=== PATIENT | female | born 1975 | race African-American/Black ===

== ENCOUNTER 2016-10-06 19:41 | Emergency (ER) | payer SELFPAY ==
[2016-10-06 19:46] VITALS: BP 124/71
--- NOTE | 2016-10-06 20:06 | ER Document Report ---
ED Medical Screen (RME) - General Stated Complaint: PAIN IN LEGS Mode of Arrival: Ambulatory Information source: Patient Notes: She presents to the emergency department with complaints of bilateral leg pain left worse than right. Patient reports she was walking a lot at [place] this past weekend. She reports the pain radiates from her heel up her leg to her hip.. Patient reports she's had this pain before. She's been told she has plantar fasciitis. Denies trauma. Patient reports her leg has always hurt. Pt reports she went to ortho two weeks ago for hip pain. Pt did not take anything for pain. I have greeted and performed a rapid initial assessment of this patient. A comprehensive ED assessment and evaluation of the patient, analysis of test results and completion of the medical decision making process will be conducted by additional ED providers. TRAVEL OUTSIDE OF THE [place] IN LAST 30 DAYS: No - Related Data Allergies/Adverse Reactions: penicillin V potassium [From Pen-Vee K] Allergy (Intermediate, Verified 13:38) Hives Sulfa (Sulfonamide Antibiotics) Allergy (Intermediate, Verified 09/04/15 13:38) Hives ibuprofen [From Motrin] Allergy (Mild, Verified 09/04/15 13:38) Hives metronidazole [From Flagyl] Allergy (Mild, Verified 09/04/15 13:38) rash Metronidazole HCl [From Flagyl] Allergy (Mild, Verified 09/04/15 13:38) rash Penicillins Allergy (Verified 09/04/15 13:38) Past Medical History - Social History Family history: Reviewed & Not Pertinent Endocrine Medical History: Renal/ Medical History: Reports: Hx Ovarian Cysts GI Medical History: Reports: Hx Gastroesophageal Reflux Disease Musculoskeltal Medical History: Reports Hx Arthritis, Reports Hx Musculoskeletal Deformity - scoliosis Psychiatric Medical History: Reports: Hx Anxiety - Immunizations Immunizations up to date: Yes Hx Diphtheria, Pertussis, Tetanus Vaccination: Yes - 2010 Physical Exam - Vital signs Vitals: Temp Pulse Resp BP Pulse Ox 98.8 F 86 16 124/71 100 10/06/16 19:46 10/06/16 19:46 10/06/16 19:46 10/06/16 19:46 10/06/16 19:46 Course - Vital Signs Vital signs: Temp Pulse Resp BP Pulse Ox 98.8 F 86 16 124/71 100 10/06/16 19:46 10/06/16 19:46 10/06/16 19:46 10/06/16 19:46 10/06/16 19:46
== END 2016-10-06 22:58 | disposition left against medical advice (07) ==
LOC: ER 19:41
DX: Z53.9 Procedure and treatment not carried out, unspecified reason (principal); M79.604 Pain in right leg; M79.605 Pain in left leg
CPT/HCPCS: 99281

== ENCOUNTER 2017-02-08 11:32 | Emergency (ER) | payer SELFPAY ==
[2017-02-08] MEDS ORDERED: ASPIRIN 325 MG TABLET PO ONE (11:54)
--- NOTE | 2017-02-08 11:57 | ER Document Report ---
ED Medical Screen (RME) - General Chief Complaint: Chest Pain Stated Complaint: CHEST PAIN Time Seen by Provider: 02/08/17 11:54 Mode of Arrival: Ambulatory Information source: Patient TRAVEL OUTSIDE OF THE [place] IN LAST 30 DAYS: No - HPI Patient complains to provider of: CP Onset: Other - Pt with intermittent SSCP for the past week -- thought it was heartburn bust hasn't gone away despite otc meds. - Related Data Allergies/Adverse Reactions: penicillin V potassium [From Pen-Vee K] Allergy (Intermediate, Verified 11:46) Hives Sulfa (Sulfonamide Antibiotics) Allergy (Intermediate, Verified 02/08/17 11:46) Hives ibuprofen [From Motrin] Allergy (Mild, Verified 02/08/17 11:46) Hives metronidazole [From Flagyl] Allergy (Mild, Verified 02/08/17 11:46) rash Metronidazole HCl [From Flagyl] Allergy (Mild, Verified 02/08/17 11:46) rash Penicillins Allergy (Verified 02/08/17 11:46) Past Medical History - Social History Family history: Reviewed & Not Pertinent Endocrine Medical History: Renal/ Medical History: Reports: Hx Ovarian Cysts. Denies: Hx Peritoneal Dialysis GI Medical History: Reports: Hx Gastroesophageal Reflux Disease Musculoskeltal Medical History: Reports Hx Arthritis, Reports Hx Musculoskeletal Deformity - scoliosis Psychiatric Medical History: Reports: Hx Anxiety - Immunizations Immunizations up to date: Yes Hx Diphtheria, Pertussis, Tetanus Vaccination: Yes - 2010 Physical Exam - Vital signs Vitals: Temp Pulse Resp BP Pulse Ox 98.5 F 101 H 18 130/77 H 97 02/08/17 11:45 02/08/17 11:45 02/08/17 11:45 02/08/17 11:45 02/08/17 11:45 Course - Vital Signs Vital signs: Temp Pulse Resp BP Pulse Ox 98.5 F 101 H 18 130/77 H 97 02/08/17 11:45 02/08/17 11:45 02/08/17 11:45 02/08/17 11:45 02/08/17 11:45
--- NOTE | 2017-02-08 12:28 | ER Document Report ---
ED General - General Chief Complaint: Chest Pain Stated Complaint: CHEST PAIN Time Seen by Provider: 02/08/17 11:54 Mode of Arrival: Ambulatory Information source: Patient Notes: This is a 41-year-old female with a history of GERD who presents to the emergency room with increasing chest discomfort on and off for the past 2 days. Patient states she has had also an increased cough at night. Patient states her symptoms started after taking apple cider vinegar. She did take Pepcid once without any relief. Past medical history: GERD, ovarian cyst Medicines: Pepcid, she has been taking apple cider vinegar, and she does take multivitamins History: She has 5 brothers and 3 sisters all in good health, her parents are good health. No history of VTE TRAVEL OUTSIDE OF THE [place] IN LAST 30 DAYS: No - HPI Onset: Last week Onset/Duration: Gradual Quality of pain: Dull Severity: Mild Associated symptoms: Chest pain. denies: Fever, Shortness of breath Exacerbated by: Movement Relieved by: Denies Similar symptoms previously: Yes Recently seen / treated by doctor: No - Related Data Allergies/Adverse Reactions: penicillin V potassium [From Pen-Vee K] Allergy (Intermediate, Verified 11:46) Hives Sulfa (Sulfonamide Antibiotics) Allergy (Intermediate, Verified 02/08/17 11:46) Hives ibuprofen [From Motrin] Allergy (Mild, Verified 02/08/17 11:46) Hives metronidazole [From Flagyl] Allergy (Mild, Verified 02/08/17 11:46) rash Metronidazole HCl [From Flagyl] Allergy (Mild, Verified 02/08/17 11:46) rash Penicillins Allergy (Verified 02/08/17 11:46) Past Medical History - General Information source: Patient - Social History Smoking Status: Never Smoker Cigarette use (# per day): No Chew tobacco use (# tins/day): No Frequency of alcohol use: None Drug Abuse: None Lives with: Family Family History: Arthritis, CAD, CVA, DM, Hyperlipidemia, Hypertension, Thyroid Disfunction Patient has suicidal ideation: No Patient has homicidal ideation: No - Past Medical History Cardiac Medical History: Reports: None Pulmonary Medical History: Reports: None EENT Medical History: Reports: None Endocrine Medical History: Reports: None Renal/ Medical History: Reports: Hx Ovarian Cysts. Denies: Hx Peritoneal Dialysis Malignancy Medical History: Reports: None GI Medical History: Reports: Hx Gastroesophageal Reflux Disease Musculoskeltal Medical History: Reports Hx Arthritis, Reports Hx Musculoskeletal Deformity - scoliosis Psychiatric Medical History: Reports: Hx Anxiety - Immunizations Immunizations up to date: Yes Hx Diphtheria, Pertussis, Tetanus Vaccination: Yes - 2010 Review of Systems - Review of Systems Constitutional: denies: Chills, Fever EENT: No symptoms reported Cardiovascular: See HPI Respiratory: See HPI Gastrointestinal: No symptoms reported Genitourinary: No symptoms reported Female Genitourinary: No symptoms reported Musculoskeletal: No symptoms reported Skin: No symptoms reported Hematologic/Lymphatic: No symptoms reported Neurological/Psychological: No symptoms reported Physical Exam - Vital signs Vitals: Temp Pulse Resp BP Pulse Ox 98.5 F 101 H 18 130/77 H 97 02/08/17 11:45 02/08/17 11:45 02/08/17 11:45 02/08/17 11:45 02/08/17 11:45 Notes: Physical exam: GENERAL: An-year-old female, alert and oriented 3, no acute distress HEAD: Atraumatic, normocephalic. EYES: Pupils equal round and reactive to light, extraocular movements intact, sclera anicteric, conjunctiva are normal. ENT: TMs normal, nares patent, oropharynx clear without exudates. Moist mucous membranes. NECK: Normal range of motion, supple without lymphadenopathy or JVD. LUNGS: Breath sounds clear to auscultation bilaterally and equal. No wheezes rales or rhonchi. HEART: Regular rate and rhythm without murmurs, rubs or gallops. ABDOMEN: Soft, normoactive bowel sounds. No tenderness to palpation. No guarding, no rebound. No masses appreciated. EXTREMITIES: Normal range of motion, no pitting or edema. No clubbing or cyanosis. NEUROLOGICAL: Cranial nerves II through XII grossly intact. Normal speech, normal gait. PSYCH: Normal mood, normal affect. SKIN: Warm, Dry, normal turgor, no rashes or lesions noted. Course - Vital Signs Vital signs: Temp Pulse Resp BP Pulse Ox 97.9 F 62 17 126/79 H 100 02/08/17 17:44 02/08/17 17:44 02/08/17 17:44 02/08/17 17:44 02/08/17 17:44 - Laboratory Result Diagrams: 02/08/17 12:00 02/08/17 12:00 Laboratory results interpreted by me: 02/08/17 02/08/17 12:00 12:00 D-Dimer 1.00 H Chloride 109 H - Diagnostic Test Radiology reviewed: Image reviewed, Reports reviewed - CTA shows no evidence of pulmonary emboli - EKG Interpretation by Me Rate: Normal Rhythm: NSR - He shows normal sinus rhythm with a ventricular rate of 84, no acute ST-T wave change Discharge - Discharge Clinical Impression: Chest pain Qualifiers: Chest pain type: other chest pain Qualified Code(s): R07.89 - Other chest pain Condition: Stable Disposition: HOME, SELF-CARE Instructions: Reflux Disease (GERD) ([facility]) Additional Instructions: Recommendations: As we discussed, the CT Of the lungs showed no evidence of pulmonary emboli, pneumonia or problem with her wounds. Serial tests of the heart were normal. I would like you to take Pepcid daily for the next 2 weeks. I would hold off on the apple cider vinegar the next few weeks to see if there is improvement with the Pepcid. Follow-up with your primary care doctor next week. Return to the emergency room for any concerns which are getting worse.
[2017-02-08 12:33] LABS: ABSOLUTE EOSINOPHILS # (AUTO) 0.1 10^3/uL (0.0-0.6); ABSOLUTE LYMPHOCYTES (AUTO) 1.6 10^3/uL (0.5-4.7); ABSOLUTE MONOCYTES (AUTO) 0.3 10^3/uL (0.1-1.4); ABSOLUTE NEUT (AUTO) 3.2 10^3/uL (1.7-8.2); BASOPHILS % (AUTO) 0.2 % (0-2); EOSINOPHILS % (AUTO) 1.9 % (0-6); HEMATOCRIT 39.6 % (36.0-47.0); HEMOGLOBIN 13.1 g/dL (12.0-15.5); HGB HCT DIFFERENCE -0.3; MEAN CORPUSCULAR HEMOGLOBIN 29.5 pg (27.0-33.4); MEAN CORPUSCULAR HGB CONC 33.2 g/dL (32.0-36.0); MEAN CORPUSCULAR VOLUME 89 fl (80-97); RED BLOOD COUNT 4.46 10^6/uL (3.72-5.28); RED CELL DISTRIBUTION WIDTH 12.9 % (11.5-14.0); SEGMENTED NEUTROPHILS % (AUTO) 60.9 % (42-78); WHITE BLOOD COUNT 5.2 10^3/uL (4.0-10.5)
--- NOTE | 2017-02-08 12:34 | RADIOLOGY REPORT (SQ) ---
EXAM DESCRIPTION: CHEST PA/LAT COMPLETED DATE/TIME: 02/08/2017 12:23 pm REASON FOR STUDY: CP COMPARISON: None. TECHNIQUE: Frontal and lateral radiographic views of the chest acquired. NUMBER OF VIEWS: Two view. LIMITATIONS: None. FINDINGS: LUNGS AND PLEURA: No opacities, masses or pneumothorax. No pleural effusion. MEDIASTINUM AND HILAR STRUCTURES: No masses or contour abnormalities. HEART AND VASCULAR STRUCTURES: Heart normal size. No evidence for failure. BONES: No acute findings. HARDWARE: None in the chest. OTHER: No other significant finding. IMPRESSION: NO SIGNIFICANT RADIOGRAPHIC FINDING IN THE CHEST. TECHNICAL DOCUMENTATION: JOB ID: [id number] [employer]- All Rights Reserved
[2017-02-08 12:56] LABS: ALANINE AMINOTRANSFERASE 24 U/L (9-52); ALBUMIN 3.9 g/dL (3.5-5.0); ALKALINE PHOSPHATASE 38 U/L (38-126); ANION GAP 9 (5-19); ASPARTATE AMINO TRANSFERASE 18 U/L (14-36); BILIRUBIN,DIRECT 0.2 mg/dL (0.0-0.4); BILIRUBIN,TOTAL 0.5 mg/dL (0.2-1.3); BLOOD UREA NITROGEN 17 mg/dL (7-20); CARBON DIOXIDE 24 mmol/L (22-30); CHLORIDE 109 mmol/L (98-107); CREATINE KINASE 92 U/L (30-135); GLUCOSE 109 mg/dL (75-110); POTASSIUM 4.2 mmol/L (3.6-5.0); SODIUM 142.1 mmol/L (137-145); TOTAL PROTEIN 7.1 g/dL (6.3-8.2)
[2017-02-08 13:07] LABS: CREATINE KINASE MB 0.53 ng/mL (<4.55)
[2017-02-08 13:08] LABS: TROPONIN I < 0.012 ng/mL
--- NOTE | 2017-02-08 14:45 | RADIOLOGY REPORT (SQ) ---
EXAM DESCRIPTION: CTA CHEST COMPLETED DATE/TIME: 02/08/2017 2:26 pm REASON FOR STUDY: cp COMPARISON: None. TECHNIQUE: CT scan of the chest performed using helical scanning technique with dynamic intravenous contrast injection. Images reviewed with lung, soft tissue and bone windows. Reconstructed coronal and sagittal MPR images reviewed. Additional 3 dimensional post-processing performed to develop Maximal Intensity Projection images (NH P). All images stored on PACS. All CT scanners at this facility use dose modulation, iterative reconstruction, and/or weight based d osing when appropriate to reduce radiation dose to as low as reasonably achievable (ALARA). [facility]: Dose Right [facility]: CareDose [facility]: Dose Right [facility]: Teradose 4D [facility]: GrayBug CONTRAST TYPE AND DOSE: 70 cc Isovue 370- low osmolar. RENAL FUNCTION: Creatinine 0.8 RADIATION DOSE: Up-to-date CT equipment and radiation dose reduction techniques were employed. CTDIv ol: 15.3 - 19.8 mGy. DLP: 540 mGy-cm. . LIMITATIONS: None. FINDINGS: LUNGS AND PLEURA: No masses, infiltrates, pneumothorax. No pleural effusions, calcificati ons. AORTA AND GREAT VESSELS: No aneurysm or dissection. HEART: No pericardial effusion. PULMONARY ARTERIES: No emboli visualized in the main pulmonary arteries or the segmental branches. HILAR AND MEDIASTINAL STRUCTURES: No identified masses or abnormal nodes. HARDWARE: None in the chest. UPPER ABDOMEN: No significant findings. Limited exam. THYROID AND OTHER SOFT TISSUES: No masses. No adenopathy. BONES: No acute or significant finding. 3D MIPS: Confirm above findings. OTHER: No other significant finding. IMPRESSION: NORMAL CTA OF THE CHEST. NO PULMONARY EMBOLI. TECHNICAL DOCUMENTATION: JOB ID: [id number] Quality ID # [id number]: Final reports with documentation of one or more dose reduction techniques (e.g., Au tomated exposure control, adjustment of the mA and/or kV according to patient size, use of iterative reconstruction technique) 2010 [employer]- All Rights Reserved
--- NOTE | 2017-02-08 14:50 | EKG REPORT ---
SEVERITY:- NORMAL ECG - SINUS RHYTHM : Confirmed by: Derrick Christensen MD 08-Feb-2017 14:49:14
[2017-02-08 17:45] VITALS: BP 126/79
== END 2017-02-08 17:45 | disposition home or self-care (01) ==
LOC: ER 11:32
DX: R07.9 Chest pain, unspecified (principal); R05 Cough; K21.9 Gastro-esophageal reflux disease without esophagitis; Z79.899 Other long term (current) drug therapy; Z88.0 Allergy status to penicillin; Z88.2 Allergy status to sulfonamides; Z88.6 Allergy status to analgesic agent; Z88.1 Allergy status to other antibiotic agents; Z82.49 Family history of ischemic heart disease and other diseases of the circulatory system
CPT/HCPCS: 36415; 71020; 71275; 80053; 82550; 82553; 84484; 85025; 85379; 93005; 93010; 99285

== ENCOUNTER 2017-03-08 15:46 | Emergency (ER) | payer SELFPAY ==
--- NOTE | 2017-03-08 16:14 | ER Document Report ---
ED Medical Screen (RME) - General Chief Complaint: Pain All Over Stated Complaint: BODY PAIN Time Seen by Provider: 03/08/17 16:12 Mode of Arrival: Ambulatory Information source: Patient - pt returned recently from [place] and states "I haven't felt well since I returned" -- has had generalized weakness, chest tightness, and "pain all over" TRAVEL OUTSIDE OF THE U.S. IN LAST 30 DAYS: Yes COUNTRY TRAVELED TO/FROM: [facility] - Related Data Allergies/Adverse Reactions: penicillin V potassium [From Pen-Vee K] Allergy (Intermediate, Verified 16:08) Hives Sulfa (Sulfonamide Antibiotics) Allergy (Intermediate, Verified 03/08/17 16:08) Hives ibuprofen [From Motrin] Allergy (Mild, Verified 03/08/17 16:08) Hives metronidazole [From Flagyl] Allergy (Mild, Verified 03/08/17 16:08) rash Metronidazole HCl [From Flagyl] Allergy (Mild, Verified 03/08/17 16:08) rash Penicillins Allergy (Verified 03/08/17 16:08) Home Medications: Current Home Medications No Home Medications 03/08/17 [History] Past Medical History - Social History Chew tobacco use (# tins/day): No Frequency of alcohol use: None Drug Abuse: None Family history: Reviewed & Not Pertinent Endocrine Medical History: Renal/ Medical History: Reports: Hx Ovarian Cysts. Denies: Hx Peritoneal Dialysis GI Medical History: Reports: Hx Gastroesophageal Reflux Disease Musculoskeltal Medical History: Reports Hx Arthritis, Reports Hx Musculoskeletal Deformity - scoliosis Psychiatric Medical History: Reports: Hx Anxiety - Immunizations Immunizations up to date: Yes Hx Diphtheria, Pertussis, Tetanus Vaccination: Yes - 2010 Physical Exam - Vital signs Vitals: Temp Pulse Resp BP Pulse Ox 99.3 F 78 18 126/72 H 98 03/08/17 15:49 03/08/17 15:49 03/08/17 15:49 03/08/17 15:49 03/08/17 15:49 Course - Vital Signs Vital signs: Temp Pulse Resp BP Pulse Ox 99.3 F 78 18 126/72 H 98 03/08/17 15:49 03/08/17 15:49 03/08/17 15:49 03/08/17 15:49 03/08/17 15:49
[2017-03-08 17:12] LABS: ABSOLUTE EOSINOPHILS # (AUTO) 0.1 10^3/uL (0.0-0.6); ABSOLUTE LYMPHOCYTES (AUTO) 1.9 10^3/uL (0.5-4.7); ABSOLUTE MONOCYTES (AUTO) 0.4 10^3/uL (0.1-1.4); BASOPHILS % (AUTO) 0.5 % (0-2); EOSINOPHILS % (AUTO) 1.5 % (0-6); HEMATOCRIT 40.6 % (36.0-47.0); HEMOGLOBIN 13.5 g/dL (12.0-15.5); HGB HCT DIFFERENCE -0.1; LYMPHOCYTES % (AUTO) 29.3 % (13-45); MEAN CORPUSCULAR HEMOGLOBIN 29.8 pg (27.0-33.4); MEAN CORPUSCULAR HGB CONC 33.2 g/dL (32.0-36.0); MEAN CORPUSCULAR VOLUME 90 fl (80-97); MONOCYTES % (AUTO) 6.3 % (3-13); RED BLOOD COUNT 4.53 10^6/uL (3.72-5.28); RED CELL DISTRIBUTION WIDTH 12.9 % (11.5-14.0); SEGMENTED NEUTROPHILS % (AUTO) 62.4 % (42-78); WHITE BLOOD COUNT 6.5 10^3/uL (4.0-10.5)
[2017-03-08 17:31] LABS: ALANINE AMINOTRANSFERASE 26 U/L (9-52); ALBUMIN 3.9 g/dL (3.5-5.0); ALKALINE PHOSPHATASE 43 U/L (38-126); ANION GAP 11 (5-19); ASPARTATE AMINO TRANSFERASE 20 U/L (14-36); BILIRUBIN,DIRECT 0.3 mg/dL (0.0-0.4); BILIRUBIN,TOTAL 0.3 mg/dL (0.2-1.3); BLOOD UREA NITROGEN 17 mg/dL (7-20); CALCIUM 9.2 mg/dL (8.4-10.2); CARBON DIOXIDE 23 mmol/L (22-30); CHLORIDE 105 mmol/L (98-107); CREATINE KINASE 127 U/L (30-135); GLUCOSE 92 mg/dL (75-110); POTASSIUM 4.3 mmol/L (3.6-5.0); SODIUM 138.9 mmol/L (137-145)
[2017-03-08 17:36] LABS: APPEARANCE,URINE CLEAR; BILIRUBIN,URINE NEGATIVE (NEGATIVE); GLUCOSE, URINE NEGATIVE (NEGATIVE); KETONES,URINE NEGATIVE (NEGATIVE); LEUKOCYTE ESTERASE,URINE NEGATIVE (NEGATIVE); NITRITE,URINE NEGATIVE (NEGATIVE); PROTEIN,URINE NEGATIVE (NEGATIVE); URINE SPECIFIC GRAVITY 1.019; UROBILINOGEN,URINE NEGATIVE mg/dL (<2.0)
[2017-03-08 17:45] LABS: CREATINE KINASE MB 1.03 ng/mL (<4.55); TROPONIN I < 0.012 ng/mL
--- NOTE | 2017-03-08 18:34 | ER Document Report ---
ED General - General Chief Complaint: Pain All Over Stated Complaint: BODY PAIN Time Seen by Provider: 03/08/17 17:33 Mode of Arrival: Ambulatory Information source: Patient TRAVEL OUTSIDE OF THE [place] IN LAST 30 DAYS: Yes COUNTRY TRAVELED TO/FROM: [facility] - [facility] Onset: Last week Onset/Duration: Gradual Quality of pain: Achy Severity: Moderate Context: Onset of symptoms while visiting in [place], worsened for a few days, then has been very slowly improving since. Associated symptoms: Body/muscle aches, Chest pain - "TIGHTNESS", Diarrhea, Leg swelling, Weakness. denies: Chills, Nonproductive cough, Productive cough, Fever, Nausea, Vomiting, Shortness of breath, Sweating Exacerbated by: Denies Relieved by: Denies Similar symptoms previously: No Recently seen / treated by doctor: No - Related Data Allergies/Adverse Reactions: penicillin V potassium [From Pen-Vee K] Allergy (Intermediate, Verified 16:08) Hives Sulfa (Sulfonamide Antibiotics) Allergy (Intermediate, Verified 03/08/17 16:08) Hives ibuprofen [From Motrin] Allergy (Mild, Verified 03/08/17 16:08) Hives metronidazole [From Flagyl] Allergy (Mild, Verified 03/08/17 16:08) rash Metronidazole HCl [From Flagyl] Allergy (Mild, Verified 03/08/17 16:08) rash Penicillins Allergy (Verified 03/08/17 16:08) Home Medications: Current Home Medications No Home Medications 03/08/17 [History] Past Medical History - General Information source: Patient - pt returned recently from [place] and states "I haven't felt well since I returned" -- has had generalized weakness, chest tightness, and "pain all over" - Social History Smoking Status: Never Smoker Chew tobacco use (# tins/day): No Frequency of alcohol use: None Drug Abuse: None Family History: Arthritis, CAD, CVA, DM, Hyperlipidemia, Hypertension, Thyroid Disfunction Endocrine Medical History: Renal/ Medical History: Reports: Hx Ovarian Cysts. Denies: Hx Peritoneal Dialysis GI Medical History: Reports: Hx Gastroesophageal Reflux Disease Musculoskeltal Medical History: Reports Hx Arthritis, Reports Hx Musculoskeletal Deformity - scoliosis Psychiatric Medical History: Reports: Hx Anxiety - Immunizations Immunizations up to date: Yes Hx Diphtheria, Pertussis, Tetanus Vaccination: Yes - 2010 Review of Systems - Review of Systems Constitutional: See HPI EENT: No symptoms reported Cardiovascular: See HPI Respiratory: No symptoms reported Gastrointestinal: See HPI Genitourinary: No symptoms reported Female Genitourinary: No symptoms reported Musculoskeletal: See HPI Skin: No symptoms reported Neurological/Psychological: No symptoms reported Physical Exam - Vital signs Vitals: Temp Pulse Resp BP Pulse Ox 99.3 F 78 18 126/72 H 98 03/08/17 15:49 03/08/17 15:49 03/08/17 15:49 03/08/17 15:49 03/08/17 15:49 Interpretation: Normal - General General appearance: Appears well, Alert In distress: None - HEENT Head: Normocephalic Eyes: Normal Conjunctiva: Normal Ears: Normal Nasal: Normal Mouth/Lips: Normal Mucous membranes: Normal Pharynx: Normal Neck: Normal - Respiratory Respiratory status: No respiratory distress Breath sounds: Normal - Cardiovascular Rhythm: Regular Heart sounds: Normal auscultation Murmur: No - Abdominal Inspection: Normal Bowel sounds: Normal - Back Back: Normal. No: CVA tenderness - Extremities General upper extremity: Normal inspection General lower extremity: Edema - TRACE, BILAT. - Neurological Neuro grossly intact: Yes Cognition: Normal Orientation: AAOx4 - Psychological Associated symptoms: Normal affect, Normal mood - Skin Skin Temperature: Warm Skin Moisture: Dry Skin Color: Normal Skin Turgor: Elastic Course - Vital Signs Vital signs: Temp Pulse Resp BP Pulse Ox 99.3 F 78 18 126/72 H 98 03/08/17 15:49 03/08/17 15:49 03/08/17 15:49 03/08/17 15:49 03/08/17 15:49 - Laboratory Result Diagrams: 03/08/17 16:45 03/08/17 16:45 Discharge - Discharge Clinical Impression: Viral illness Condition: Stable Disposition: HOME, SELF-CARE Instructions: Viral Syndrome ([facility]) Additional Instructions: REST, DRINK PLENTY OF FLUIDS. YOU MAY TAKE ACETAMINOPHEN OR IBUPROFEN FOR PAIN IF NEEDED. AVOID SALT IN YOUR DIET. KEEP YOUR FEET & LEGS ELEVATED WHEN POSSIBLE. FOLLOW UP IF NOT IMPROVING IN 2-3 DAYS, OR SOONER IF YOU GET WORSE, ANY TIME.
--- NOTE | 2017-03-08 18:37 | RADIOLOGY REPORT (SQ) ---
EXAM DESCRIPTION: CHEST PA/LAT COMPLETED DATE/TIME: 03/08/2017 5:27 pm REASON FOR STUDY: CP COMPARISON: None. EXAM PARAMETERS: NUMBER OF VIEWS: two views TECHNIQUE: Digital Frontal and Lateral radiographic views of the chest acquired. RADIATION DOSE: NA LIMITATIONS: none FINDINGS: LUNGS AND PLEURA: No opacities, masses or pneumothorax. No pleural effusion. MEDIASTINUM AND HILAR STRUCTURES: No masses or contour abnormalities. HEART AND VASCULAR STRUCTURES: Heart normal size. No evidence for failure. BONES: No acute findings. HARDWARE: None in the chest. OTHER: No other significant finding. IMPRESSION: NO SIGNIFICANT RADIOGRAPHIC FINDING IN THE CHEST. TECHNICAL DOCUMENTATION: JOB ID: [id number] [employer]- All Rights Reserved
[2017-03-08 19:14] VITALS: BP 129/78
--- NOTE | 2017-03-08 23:54 | EKG REPORT ---
SEVERITY:- NORMAL ECG - SINUS RHYTHM : Confirmed by: Lizzy Lieberman 08-Mar-2017 23:53:36
== END 2017-03-08 19:14 | disposition home or self-care (01) ==
LOC: ER 15:46
DX: B34.9 Viral infection, unspecified (principal); M79.1 Myalgia; R07.9 Chest pain, unspecified; R53.1 Weakness; R42 Dizziness and giddiness; R19.7 Diarrhea, unspecified; Z88.0 Allergy status to penicillin; Z88.2 Allergy status to sulfonamides; Z88.6 Allergy status to analgesic agent
CPT/HCPCS: 36415; 71020; 80053; 81001; 82550; 82553; 84484; 84703; 85025; 93005; 93010; 99284

== ENCOUNTER 2017-03-29 14:34 | Emergency (ER) | payer SELFPAY ==
[2017-03-29] MEDS ORDERED: ASPIRIN 81 MG TABLET, CHEWABLE PO ONE (14:58)
--- NOTE | 2017-03-29 15:06 | ER Document Report ---
ED Medical Screen (RME) - General Chief Complaint: Chest Pain Stated Complaint: CHEST PAIN Time Seen by Provider: 03/29/17 14:57 Information source: Patient Notes: 42-year-old female presents with complaints of generalized body aches syncopal episodes when she stands. Patient denies any fevers or chills states her body just does not feel right I have greeted and performed a rapid initial assessment of this patient. A comprehensive ED assessment and evaluation of the patient, analysis of test results and completion of the medical decision making process will be conducted by additional ED providers. PHYSICAL EXAMINATION: GENERAL: Well-appearing, well-nourished and in no acute distress. HEAD: Atraumatic, normocephalic. EYES: Pupils equal round extraocular movements intact, conjunctiva are normal. ENT: Nares patent NECK: Normal range of motion LUNGS: No respiratory distress Musculoskeletal: Normal range of motion NEUROLOGICAL: Normal speech, normal gait. PSYCH: Normal mood, normal affect. SKIN: Warm, Dry, normal turgor, no rashes or lesions noted. TRAVEL OUTSIDE OF THE [place] IN LAST 30 DAYS: Yes - [place] COUNTRY TRAVELED TO/FROM: [facility] - Related Data Allergies/Adverse Reactions: penicillin V potassium [From Pen-Vee K] Allergy (Intermediate, Verified 14:53) Hives Sulfa (Sulfonamide Antibiotics) Allergy (Intermediate, Verified 03/29/17 14:53) Hives ibuprofen [From Motrin] Allergy (Mild, Verified 03/29/17 14:53) Hives metronidazole [From Flagyl] Allergy (Mild, Verified 03/29/17 14:53) rash Metronidazole HCl [From Flagyl] Allergy (Mild, Verified 03/29/17 14:53) rash Penicillins Allergy (Verified 03/29/17 14:53) Past Medical History - Social History Chew tobacco use (# tins/day): No Frequency of alcohol use: None Drug Abuse: None Family history: Reviewed & Not Pertinent Endocrine Medical History: Renal/ Medical History: Reports: Hx Ovarian Cysts. Denies: Hx Peritoneal Dialysis GI Medical History: Reports: Hx Gastroesophageal Reflux Disease Musculoskeltal Medical History: Reports Hx Arthritis, Reports Hx Musculoskeletal Deformity - scoliosis Psychiatric Medical History: Reports: Hx Anxiety Surgical Hx: Negative - Immunizations Immunizations up to date: Yes Hx Diphtheria, Pertussis, Tetanus Vaccination: Yes - 2010 Physical Exam - Vital signs Vitals: Temp Pulse Resp BP Pulse Ox 99.4 F 84 16 132/72 H 98 03/29/17 14:46 03/29/17 14:46 03/29/17 14:46 03/29/17 14:46 03/29/17 14:46 Course - Vital Signs Vital signs: Temp Pulse Resp BP Pulse Ox 99.4 F 84 16 132/72 H 98 03/29/17 14:46 03/29/17 14:46 03/29/17 14:46 03/29/17 14:46 03/29/17 14:46
[2017-03-29] MEDS ORDERED: MECLIZINE HCL 25 MG TABLET PO ONE (16:08)
[2017-03-29] MEDS ORDERED: NORMAL SALINE 1000 ML 1,000 ML IV ONE (16:12)
--- NOTE | 2017-03-29 16:12 | ER Document Report ---
ED General - General Chief Complaint: Chest Pain Stated Complaint: CHEST PAIN Time Seen by Provider: 03/29/17 14:57 Mode of Arrival: Ambulatory Information source: Patient Notes: Patient presents complaining of generalized body aches, headache and right ear pain for the past 3 days. Patient also states that she will occasionally get dizzy when she ambulates. Patient states that she has had increased bowel sounds over the past week with occasional abdominal tenderness. Patient states that whenever her stomach starts to hurt it radiates up into her chest and her chest starts to burn. Patient reports chest burning off and on for the past 3 days. Patient does report recent travel to [place] early last month. Patient complains of diarrhea with one episode today. Patient denies any nausea, vomiting, cough or syncope. Patient states that when she gets dizzy when she ambulates she feels faint although she has not passed out. Patient does complain of sinus congestion and right ear discomfort. Last bowel movement was today and was normal. TRAVEL OUTSIDE OF THE [place] IN LAST 30 DAYS: Yes - [place] COUNTRY TRAVELED TO/FROM: [facility] - HPI Onset: Other - 3 days Onset/Duration: Persistent Quality of pain: Achy Pain Level: 5 Associated symptoms: Body/muscle aches, Chest pain, Diarrhea, Earache, Rhinnorhea. denies: Nonproductive cough, Productive cough, Fever, Nausea, Vomiting, Shortness of breath, Sore throat Exacerbated by: Denies Relieved by: Denies Similar symptoms previously: No Recently seen / treated by doctor: No - Related Data Allergies/Adverse Reactions: penicillin V potassium [From Pen-Vee K] Allergy (Intermediate, Verified 14:53) Hives Sulfa (Sulfonamide Antibiotics) Allergy (Intermediate, Verified 03/29/17 14:53) Hives ibuprofen [From Motrin] Allergy (Mild, Verified 03/29/17 14:53) Hives metronidazole [From Flagyl] Allergy (Mild, Verified 03/29/17 14:53) rash Metronidazole HCl [From Flagyl] Allergy (Mild, Verified 03/29/17 14:53) rash Penicillins Allergy (Verified 03/29/17 14:53) Past Medical History - General Information source: Patient Last Menstrual Period: 02/28/17 - Social History Smoking Status: Never Smoker Chew tobacco use (# tins/day): No Frequency of alcohol use: None Drug Abuse: None Occupation: works with disabled Family History: Arthritis, CAD, CVA, DM, Hyperlipidemia, Hypertension, Thyroid Disfunction Endocrine Medical History: Renal/ Medical History: Reports: Hx Ovarian Cysts. Denies: Hx Peritoneal Dialysis GI Medical History: Reports: Hx Gastroesophageal Reflux Disease Musculoskeltal Medical History: Reports Hx Arthritis, Reports Hx Musculoskeletal Deformity - scoliosis Psychiatric Medical History: Reports: Hx Anxiety Surgical Hx: Negative - Immunizations Immunizations up to date: Yes Hx Diphtheria, Pertussis, Tetanus Vaccination: Yes - 2010 Review of Systems - Review of Systems Constitutional: Malaise. denies: Fever EENT: Ear pain. denies: Ear discharge, Throat pain Cardiovascular: Chest pain, Dizziness - pt described as feeling lightheaded. denies: Palpitations Respiratory: No symptoms reported. denies: Cough, Hurts to breathe, Short of breath Gastrointestinal: Abdominal pain, Diarrhea. denies: Nausea, Vomiting, Poor appetite Genitourinary: No symptoms reported. denies: Dysuria, Flank pain Female Genitourinary: No symptoms reported Musculoskeletal: No symptoms reported Skin: No symptoms reported Hematologic/Lymphatic: No symptoms reported Neurological/Psychological: Headaches. denies: Confusion, Weakness, Lost consciousness Physical Exam - Vital signs Vitals: Temp Pulse Resp BP Pulse Ox 99.4 F 84 16 132/72 H 98 03/29/17 14:46 03/29/17 14:46 03/29/17 14:46 03/29/17 14:46 03/29/17 14:46 - General General appearance: Appears well, Alert In distress: None - HEENT Head: Normocephalic, Atraumatic Eyes: Normal Ears: Normal External canal: Normal Tympanic membrane: Serous effusion Sinus: Normal Nasal: Swelling, Clear rhinorrhea Mouth/Lips: Normal Mucous membranes: Normal Pharynx: Normal. No: Erythema, Exudate Neck: Normal, Supple. No: Lymphadenopathy, Meningismus - Respiratory Respiratory status: No respiratory distress Chest status: Nontender Breath sounds: Normal. No: Rales, Rhonchi, Stridor, Wheezing Chest palpation: Normal - Cardiovascular Rhythm: Regular Heart sounds: S1 appreciated, S2 appreciated Murmur: No - Abdominal Inspection: Normal Distension: No distension Bowel sounds: Hyperactive Tenderness: Nontender Organomegaly: No organomegaly - Back Back: Normal, Nontender. No: CVA tenderness, Vertebra tenderness - Extremities General upper extremity: Normal inspection, Normal ROM General lower extremity: Normal inspection, Normal ROM - Neurological Neuro grossly intact: Yes Cognition: Normal [place] Coma Scale Eye Opening: Spontaneous [place] Coma Scale Verbal: Oriented [place] Coma Scale Motor: Obeys Commands [place] Coma Scale Total: 15 - Psychological Associated symptoms: Normal affect, Normal mood - Skin Skin Temperature: Warm Skin Moisture: Dry Skin Color: Normal Course - Re-evaluation Re-evalutation: 03/29/17 17:[address] Bob regarding patient presentation and diagnostic tests. Patient did have a CTA in January for chest pain symptoms. Patient's d-dimer is elevated as compared to that visit. Patient states that her symptoms are worse today than when she was here previously with chest discomfort. Patient states that she did not feel as though she was going to pass out like she did today. Dr. Bob agrees with diagnostic evaluation at this time. Pt denies any cp at this time. VSS. Pt denies POZO at this time. 03/29/17 17:59 03/29/17 20:02 The patient has atypical chest pain as the patient's chest pain is not suggestive of pulmonary embolus, cardiac ischemia, aortic dissection, or other serious etiology. Given the extremely low risk of these diagnoses for the test in evaluation for these possibilities does not appear to be indicated at this time. Patient has been instructed to return if the symptoms worsen or change in any way. - Vital Signs Vital signs: Temp Pulse Resp BP Pulse Ox 99.4 F 84 13 119/75 100 03/29/17 14:46 03/29/17 14:46 03/29/17 19:28 03/29/17 19:28 03/29/17 19:28 - Laboratory Result Diagrams: 03/29/17 16:15 03/29/17 16:15 Laboratory results interpreted by me: 03/29/17 03/29/17 16:15 16:15 D-Dimer 1.66 H Direct Bilirubin 0.5 H Labs- Last Values WBC 6.1 10^3/uL (4.0-10.5) 03/29/17 16:15 RBC 4.68 10^6/uL (3.72-5.28) 03/29/17 16:15 Hgb 14.0 g/dL (12.0-15.5) 03/29/17 16:15 Hct 42.0 % (36.0-47.0) 03/29/17 16:15 MCV 90 fl (80-97) 03/29/17 16:15 MCH 29.8 pg (27.0-33.4) 03/29/17 16:15 MCHC 33.3 g/dL (32.0-36.0) 03/29/17 16:15 RDW 13.0 % (11.5-14.0) 03/29/17 16:15 Plt Count 268 10^3/uL (150-450) 03/29/17 16:15 Seg Neutrophils % 66.4 % (42-78) 03/29/17 16:15 Lymphocytes % 24.6 % (13-45) 03/29/17 16:15 Monocytes % 7.1 % (3-13) 03/29/17 16:15 Eosinophils % 1.6 % (0-6) 03/29/17 16:15 Basophils % 0.3 % (0-2) 03/29/17 16:15 Absolute Neutrophils 4.1 10^3/uL (1.7-8.2) 03/29/17 16:15 Absolute Lymphocytes 1.5 10^3/uL (0.5-4.7) 03/29/17 16:15 Absolute Monocytes 0.4 10^3/uL (0.1-1.4) 03/29/17 16:15 Absolute Eosinophils 0.1 10^3/uL (0.0-0.6) 03/29/17 16:15 Absolute Basophils 0.0 10^3/uL (0.0-0.2) 03/29/17 16:15 D-Dimer 1.66 ug/mL (0.00-0.50) H 03/29/17 16:15 Sodium 139.0 mmol/L (137-145) 03/29/17 16:15 Potassium 4.3 mmol/L (3.6-5.0) 03/29/17 16:15 Chloride 106 mmol/L (98-107) 03/29/17 16:15 Carbon Dioxide 24 mmol/L (22-30) 03/29/17 16:15 Anion Gap 9 (5-19) 03/29/17 16:15 BUN 15 mg/dL (7-20) 03/29/17 16:15 Creatinine 0.80 mg/dL (0.52-1.25) 03/29/17 16:15 Est GFR ( Amer) > 60 (>60) 03/29/17 16:15 Est GFR (Non-Af Amer) > 60 (>60) 03/29/17 16:15 Glucose 96 mg/dL (75-110) 03/29/17 16:15 Calcium 9.2 mg/dL (8.4-10.2) 03/29/17 16:15 Total Bilirubin 0.6 mg/dL (0.2-1.3) 03/29/17 16:15 Direct Bilirubin 0.5 mg/dL (0.0-0.4) H 03/29/17 16:15 Indirect Bilirubin Not Reportable 03/29/17 16:15 Neonat Total Bilirubin Not Reportable 03/29/17 16:15 AST 29 U/L (14-36) 03/29/17 16:15 ALT 22 U/L (9-52) 03/29/17 16:15 Alkaline Phosphatase 39 U/L (38-126) 03/29/17 16:15 Creatine Kinase 117 U/L (30-135) 03/29/17 16:15 CK-MB (CK-2) 0.73 ng/mL (<4.55) 03/29/17 16:15 Troponin I < 0.012 ng/mL 03/29/17 16:15 Total Protein 7.2 g/dL (6.3-8.2) 03/29/17 16:15 Albumin 3.9 g/dL (3.5-5.0) 03/29/17 16:15 Lipase 91.8 U/L (23-300) 03/29/17 16:15 Serum HCG, Qual NEGATIVE (NEGATIVE) 03/29/17 16:15 - Diagnostic Test Radiology reviewed: Reports reviewed - EKG Interpretation by Fl EKG shows normal: Sinus rhythm Rate: Normal Discharge - Discharge Clinical Impression: Resolved abdominal pain, Hx of gastroesophageal reflux (GERD) Chest pain Qualifiers: Chest pain type: unspecified Qualified Code(s): R07.9 - Chest pain, unspecified Diarrhea Qualifiers: Diarrhea type: unspecified type Qualified Code(s): R19.7 - Diarrhea, unspecified Serous otitis media Qualifiers: Chronicity: acute Laterality: right Recurrence: not specified as recurrent Qualified Code(s): H65.01 - Acute serous otitis media, right ear Instructions: Abdominal Pain ([facility]), Chest Pain of Unclear Cause ([facility]), Diarrhea , Nonspecific ([facility]), Prilosec (Acid Pump Inhibitor) ([facility]), Reflux Disease (GERD ) ([facility]) Additional Instructions: Return immediately for any new or worsening symptoms Followup with your primary care provider, call tomorrow to make a followup appointment Follow-up with proposal specialist for further evaluation Prescriptions: Meclizine HCl [Antivert 25 mg Tablet] 25 mg PO ASDIR PRN #15 tablet PRN Reason: Omeprazole Magnesium [Prilosec Otc] 20 mg PO DAILY #15 tablet. Sucralfate [Carafate 1 gm Tablet] 1 gm PO ACHS #40 tablet Forms: Return to Work Referrals: NICK NEWSOME NP [Primary Care Provider] - 03/31/17 JULIUS STILL MD [ACTIVE STAFF] - Follow up in 3-5 days
[2017-03-29 16:32] LABS: ADD ON TESTING BLD IN LAB ACKNOWLEDGE
[2017-03-29 16:45] LABS: ABSOLUTE EOSINOPHILS # (AUTO) 0.1 10^3/uL (0.0-0.6); ABSOLUTE LYMPHOCYTES (AUTO) 1.5 10^3/uL (0.5-4.7); ABSOLUTE MONOCYTES (AUTO) 0.4 10^3/uL (0.1-1.4); ABSOLUTE NEUT (AUTO) 4.1 10^3/uL (1.7-8.2); BASOPHILS % (AUTO) 0.3 % (0-2); EOSINOPHILS % (AUTO) 1.6 % (0-6); LYMPHOCYTES % (AUTO) 24.6 % (13-45); MEAN CORPUSCULAR HEMOGLOBIN 29.8 pg (27.0-33.4); MEAN CORPUSCULAR HGB CONC 33.3 g/dL (32.0-36.0); MEAN CORPUSCULAR VOLUME 90 fl (80-97); MONOCYTES % (AUTO) 7.1 % (3-13); RED BLOOD COUNT 4.68 10^6/uL (3.72-5.28); SEGMENTED NEUTROPHILS % (AUTO) 66.4 % (42-78); WHITE BLOOD COUNT 6.1 10^3/uL (4.0-10.5)
--- NOTE | 2017-03-29 16:56 | RADIOLOGY REPORT (SQ) ---
EXAM DESCRIPTION: CHEST SINGLE VIEW COMPLETED DATE/TIME: 03/29/2017 4:45 pm REASON FOR STUDY: chest pain COMPARISON: 03/08/2017. NUMBER OF VIEWS: One view. TECHNIQUE: Single frontal radiographic view of the chest acquired. LIMITATIONS: None. FINDINGS: LUNGS AND PLEURA: No opacities, masses or pneumothorax. No pleural effusion. MEDIASTINUM AND HILAR STRUCTURES: No masses. Contour normal. HEART AND VASCULAR STRUCTURES: Heart normal in size. Normal vasculature. BONES: No acute findings. HARDWARE: None in the chest. OTHER: No other significant finding. IMPRESSION: NO SIGNIFICANT RADIOGRAPHIC FINDING IN THE CHEST. TECHNICAL DOCUMENTATION: JOB ID: [id number] 1984 true[x] Media- All Rights Reserved
[2017-03-29 17:09] LABS: ALANINE AMINOTRANSFERASE 22 U/L (9-52); ALBUMIN 3.9 g/dL (3.5-5.0); ALKALINE PHOSPHATASE 39 U/L (38-126); ANION GAP 9 (5-19); ASPARTATE AMINO TRANSFERASE 29 U/L (14-36); BILIRUBIN,DIRECT 0.5 mg/dL (0.0-0.4); BILIRUBIN,TOTAL 0.6 mg/dL (0.2-1.3); BLOOD UREA NITROGEN 15 mg/dL (7-20); CALCIUM 9.2 mg/dL (8.4-10.2); CARBON DIOXIDE 24 mmol/L (22-30); CHLORIDE 106 mmol/L (98-107); CREATINE KINASE 117 U/L (30-135); GLUCOSE 96 mg/dL (75-110); LIPASE 91.8 U/L (23-300); POTASSIUM 4.3 mmol/L (3.6-5.0); TOTAL PROTEIN 7.2 g/dL (6.3-8.2)
[2017-03-29 17:17] LABS: CREATINE KINASE MB 0.73 ng/mL (<4.55)
[2017-03-29 17:18] LABS: TROPONIN I < 0.012 ng/mL
--- NOTE | 2017-03-29 19:48 | RADIOLOGY REPORT (SQ) ---
EXAM DESCRIPTION: CTA CHEST COMPLETED DATE/TIME: 03/29/2017 6:58 pm REASON FOR STUDY: cp, elevated d dimer COMPARISON: January. TECHNIQUE: CT scan of the chest performed using helical scanning technique with dynamic intravenous contrast injection. Images reviewed with lung, soft tissue and bone windows. Reconstructed coronal and sagittal MPR images reviewed. Additional 3 dimensional post-processing performed to develop Maximal Intensity Projection images (HI P). All images stored on PACS. All CT scanners at this facility use dose modulation, iterative reconstruction, and/or weight based d osing when appropriate to reduce radiation dose to as low as reasonably achievable (ALARA). [facility]: Dose Right [facility]: CareDose [facility]: Dose Right [facility]: Teradose 4D [facility]: Brainpark CONTRAST TYPE AND DOSE: contrast/concentration: Isovue 370.00 mg/ml; Total Contrast Delivered: 78.0 ml; Total Saline Delivered: 50.7 ml Contrast bolus optimized for the pulmonary arteries. Not diagnostic for the aorta. RENAL FUNCTION: None required. The patient is less than 50 years old. RADIATION DOSE: Up-to-date CT equipment and radiation dose reduction techniques were employed. CTDIv ol: 6.6 - 46.9 mGy. DLP: 1471 mGy-cm. . LIMITATIONS: None. FINDINGS: LUNGS AND PLEURA: No masses, infiltrates, pneumothorax. No pleural effusions, calcificati ons. AORTA AND GREAT VESSELS: No aneurysm. Contrast bolus not optimized for the aorta. HEART: No pericardial effusion. No significant coronary artery calcifications. PULMONARY ARTERIES: No emboli visualized in the main pulmonary arteries or the segmental branches. HILAR AND MEDIASTINAL STRUCTURES: No identified masses or abnormal nodes. HARDWARE: None in the chest. UPPER ABDOMEN: No significant findings. Limited exam. THYROID AND OTHER SOFT TISSUES: No masses. No adenopathy. BONES: No acute or significant finding. 3D MIPS: Confirm above findings. OTHER: No other significant finding. IMPRESSION: NORMAL CTA OF THE CHEST. NO PULMONARY EMBOLI. COMMENT: Quality ID # [id number]: Final reports with documentation of one or more dose reduction techniques (e.g., Automated exposure control, adjustment of the mA and/or kV according to patient size, use of iterative reconstruction technique) TECHNICAL DOCUMENTATION: JOB ID: [id number] [employer]- All Rights Reserved
[2017-03-29 20:45] VITALS: BP 124/69
--- NOTE | 2017-03-29 23:17 | EKG REPORT ---
SEVERITY:- NORMAL ECG - SINUS RHYTHM : Confirmed by: Lizzy Lieberman 29-Mar-2017 23:17:33
== END 2017-03-29 20:55 | disposition home or self-care (01) ==
LOC: ER 14:34
DX: R10.9 Unspecified abdominal pain (principal); R07.9 Chest pain, unspecified; R19.7 Diarrhea, unspecified; H65.01 Acute serous otitis media, right ear; R51 Headache; M79.1 Myalgia; K21.9 Gastro-esophageal reflux disease without esophagitis; R42 Dizziness and giddiness; Z88.0 Allergy status to penicillin; Z88.2 Allergy status to sulfonamides
CPT/HCPCS: 93005; 99285; 96360; 36415; 82553; 82550; 83690; 84703; 85025; 80053; 84484; 85379; 71010; 71275; 93010; J7030

== ENCOUNTER 2017-04-01 15:58 | Emergency (ER) | payer SELFPAY ==
[2017-04-01] MEDS ORDERED: GUAIFENESIN 600 MG TABLET.SA PO ONE (17:13)
[2017-04-01] MEDS ORDERED: LORATADINE 10 MG TABLET PO ONE (17:13)
[2017-04-01] MEDS ORDERED: ACETAMINOPHEN 325 MG TABLET PO ONE (17:13)
[2017-04-01] MEDS ORDERED: PSEUDOEPHEDRINE HCL 30 MG TABLET PO ONE (17:13)
--- NOTE | 2017-04-01 17:19 | ER Document Report ---
ED Headache - General Chief Complaint: Headache Stated Complaint: HEADACHE Time Seen by Provider: 04/01/17 17:03 Mode of Arrival: Ambulatory Information source: Patient Notes: 42-year-old female presents to ED for complaint of burning eyes painful ears headache behind her eyes. She states she has had this headache for 3-5 days and was in the ED on Friday for the same symptoms and with chest pain. TRAVEL OUTSIDE OF THE [place] IN LAST 30 DAYS: Yes - HPI Patient complains to provider of: Headache Onset: Last week Onset was: Gradual Timing: Still present Quality of pain: Achy, Burning, Pressure Severity: Moderate Pain Level: 4 Associated symptoms: Double/blurred vision, Other - headache ear pain burning eyes Exacerbated by: Movement, Position Similar symptoms previously: Yes Recently seen / treated by doctor: Yes - Related Data Allergies/Adverse Reactions: penicillin V potassium [From Pen-Vee K] Allergy (Intermediate, Verified 16:04) Hives Sulfa (Sulfonamide Antibiotics) Allergy (Intermediate, Verified 04/01/17 16:04) Hives ibuprofen [From Motrin] Allergy (Mild, Verified 04/01/17 16:04) Hives metronidazole [From Flagyl] Allergy (Mild, Verified 04/01/17 16:04) rash Metronidazole HCl [From Flagyl] Allergy (Mild, Verified 04/01/17 16:04) rash Penicillins Allergy (Verified 04/01/17 16:04) Past Medical History - General Information source: Patient - Social History Smoking Status: Never Smoker Cigarette use (# per day): No Chew tobacco use (# tins/day): No Smoking Education Provided: No Frequency of alcohol use: None Drug Abuse: None Lives with: Spouse/Significant other Family History: Arthritis, CAD, CVA, DM, Hyperlipidemia, Hypertension, Thyroid Disfunction Patient has suicidal ideation: No - Past Medical History Cardiac Medical History: Reports: None Pulmonary Medical History: Reports: None EENT Medical History: Reports: None Neurological Medical History: Reports: None Endocrine Medical History: Reports: None Renal/ Medical History: Reports: Hx Ovarian Cysts Malignancy Medical History: Reports: None GI Medical History: Reports: Hx Gastroesophageal Reflux Disease Musculoskeltal Medical History: Reports Hx Arthritis, Reports Hx Musculoskeletal Deformity - scoliosis Skin Medical History: Reports None Psychiatric Medical History: Reports: Hx Anxiety Traumatic Medical History: Reports: None Infectious Medical History: Reports: None Surgical Hx: Negative - Immunizations Immunizations up to date: Yes Hx Diphtheria, Pertussis, Tetanus Vaccination: Yes - 2010 Review of Systems - Review of Systems Constitutional: No symptoms reported EENT: Blurred vision, Ear pain, Sinus pressure, Sinus discharge Cardiovascular: No symptoms reported Respiratory: Cough Gastrointestinal: No symptoms reported Genitourinary: No symptoms reported Female Genitourinary: No symptoms reported Musculoskeletal: No symptoms reported Skin: No symptoms reported Hematologic/Lymphatic: No symptoms reported Neurological/Psychological: Headaches -: Yes All other systems reviewed and negative Physical Exam - Vital signs Vitals: Temp Pulse Resp BP Pulse Ox 99.3 F 75 18 134/79 H 98 04/01/17 16:02 04/01/17 16:02 04/01/17 16:02 04/01/17 16:02 04/01/17 16:02 Interpretation: Normal - General General appearance: Appears well, Alert - HEENT Head: Normocephalic, Atraumatic Eyes: Normal Pupils: PERRL Ears: Normal External canal: Normal Tympanic membrane: Normal Sinus: Frontal Nasal: Purulent discharge, Swelling Mouth/Lips: Normal Mucous membranes: Normal Pharynx: Post nasal drainage. No: Erythema, Exudate, Tonsillar hypertrophy Neck: Normal - Respiratory Respiratory status: No respiratory distress Chest status: Nontender Breath sounds: Normal Chest palpation: Normal - Cardiovascular Rhythm: Regular Heart sounds: Normal auscultation Murmur: No - Abdominal Inspection: Normal Distension: No distension Bowel sounds: Normal Tenderness: Nontender Organomegaly: No organomegaly - Back Back: Normal, Nontender - Extremities General upper extremity: Normal inspection, Nontender, Normal color, Normal ROM , Normal temperature General lower extremity: Normal inspection, Nontender, Normal color, Normal ROM , Normal temperature, Normal weight bearing. No: Ankit's sign - Neurological Neuro grossly intact: Yes Cognition: Normal Orientation: AAOx4 [place] Coma Scale Eye Opening: Spontaneous [place] Coma Scale Verbal: Oriented [place] Coma Scale Motor: Obeys Commands [place] Coma Scale Total: 15 Speech: Normal Motor strength normal: LUE, RUE, LLE, RLE Sensory: Normal - Psychological Associated symptoms: Normal affect, Normal mood - Skin Skin Temperature: Warm Skin Moisture: Dry Skin Color: Normal Course - Re-evaluation Re-evalutation: 04/01/17 17:21 Patient treated with Claritin, Sudafed, Mucinex, and Tylenol for her upper respiratory infection. She has some dizziness and burning in her eyes due to the congestion. She does not have any fever vital signs are stable. - Vital Signs Vital signs: Temp Pulse Resp BP Pulse Ox 99.3 F 75 18 134/79 H 98 04/01/17 16:02 04/01/17 16:02 04/01/17 16:02 04/01/17 16:02 04/01/17 16:02 Discharge - Discharge Clinical Impression: URI (upper respiratory infection) Qualifiers: URI type: unspecified URI Qualified Code(s): J06.9 - Acute upper respiratory infection, unspecified Condition: Stable Disposition: HOME, SELF-CARE Additional Instructions: UPPER RESPIRATORY ILLNESS: You have a viral infection of the respiratory passages -- a "cold." This common infection causes nasal congestion, drainage, and often sore throat and cough. It is highly contagious. The disease usually lasts about 10 to 14 days. There is no "cure" for the viral infection -- it must run its course. If there is a complication, such as bacterial infection in the nose, sinuses, middle ear, or bronchial tubes, antibiotics may be required. The antibiotics won't affect the virus. Drink plenty of fluids. A humidifier may help. An expectorant medication or decongestant may make you more comfortable. Use acetaminophen or ibuprofen for fever or aches. See the doctor if fever persists over two days, if there is any significant worsening of your symptoms, or if you simply fail to improve as expected. DECONGESTANT MEDICATION: A decongestant medicine has been prescribed. Often this medicine is combined in the same tablet with an antihistamine or expectorant. This type of medicine is helpful in treating a bad cold or sinus condition, as well as in treatment of the nasal congestion of hay fever. It is not of much benefit for lung infections. Decongestant medicines are related to stimulants. They can cause an increase in blood pressure and heart rate. Persons with heart disease and high blood pressure should not take decongestants without discussing this with the physician. If you develop palpitations, chest pain, headache, or tremors, stop the medicine and consult your physician. COUGH-SUPPRESSANT & EXPECTORANT MEDICATION: You are to use a cough medication as needed for relief of symptoms. This medicine is a combination of an expectorant (to make the mucous thinner and more easily "coughed up") and a cough suppressant (to reduce the frequency of coughing). The cough-suppressant medicine is related to narcotics. You may experience mild nausea and sleepiness. Some patients who are very sensitive to narcotics may have stomach pain from this medicine. Taking the medicine with food reduces these side effects. Do not drive or work with machinery until you know how this medicine affects you. The expectorant should have no side effects. Iodine-containing expectorants (such as organidin) should not be taken by persons with active thyroid disease unless approved by your doctor. Call the doctor if you develop shortness of breath, hives, rash, itching, lightheadedness, or severe nausea and vomiting. USE OF ACETAMINOPHEN (Tylenol): Acetaminophen may be taken for pain relief or fever control. It's much safer than aspirin, offering a wider range of "safe" dosages. It is safe during . Some brand names are Tylenol, Panadol, Datril, Anacin 3, Tempra, and Liquiprin. Acetaminophen can be repeated every four hours. The following are maximum recommended dosages: >89 pounds or adults 650 mg to 900 mg Acetaminophen can be repeated every four hours. Maximum dose not to exceed 4000 mg a day. FOLLOW-UP CARE: If you have been referred to a physician for follow-up care, call the physician s office for an appointment as you were instructed or within the next two days. If you experience worsening or a significant change in your symptoms, notify the physician immediately or return to the Emergency Department at any time for re-evaluation. Forms: Elevated Blood Pressure Referrals: NICK NEWSOME NP [Primary Care Provider] - Follow up as needed
[2017-04-01 17:40] VITALS: BP 122/80
== END 2017-04-01 17:38 | disposition home or self-care (01) ==
LOC: ER 15:58
DX: J06.9 Acute upper respiratory infection, unspecified (principal); R51 Headache; H53.8 Other visual disturbances; Z88.0 Allergy status to penicillin; Z88.2 Allergy status to sulfonamides; Z88.6 Allergy status to analgesic agent
CPT/HCPCS: 99283

== ENCOUNTER 2017-05-12 10:59 | Emergency (ER) | payer SELFPAY ==
[2017-05-12 11:09] VITALS: BP 120/74
[2017-05-12 12:33] LABS: APPEARANCE,URINE CLEAR; BILIRUBIN,URINE NEGATIVE (NEGATIVE); GLUCOSE, URINE NEGATIVE (NEGATIVE); KETONES,URINE NEGATIVE (NEGATIVE); LEUKOCYTE ESTERASE,URINE NEGATIVE (NEGATIVE); NITRITE,URINE NEGATIVE (NEGATIVE); PROTEIN,URINE NEGATIVE (NEGATIVE); URINE SPECIFIC GRAVITY 1.003; UROBILINOGEN,URINE NEGATIVE mg/dL (<2.0)
[2017-05-12 12:56] LABS: ALANINE AMINOTRANSFERASE 26 U/L (9-52); ALKALINE PHOSPHATASE 40 U/L (38-126); ANION GAP 13 (5-19); ASPARTATE AMINO TRANSFERASE 20 U/L (14-36); BILIRUBIN,DIRECT 0.2 mg/dL (0.0-0.4); BILIRUBIN,TOTAL 0.4 mg/dL (0.2-1.3); BLOOD UREA NITROGEN 15 mg/dL (7-20); CALCIUM 9.5 mg/dL (8.4-10.2); CARBON DIOXIDE 22 mmol/L (22-30); CHLORIDE 107 mmol/L (98-107); CREATININE RESULT 0.76 mg/dL (0.52-1.25); GLUCOSE 85 mg/dL (75-110); POTASSIUM 4.8 mmol/L (3.6-5.0); SODIUM 141.6 mmol/L (137-145); TOTAL PROTEIN 7.2 g/dL (6.3-8.2)
[2017-05-12 13:13] LABS: ABSOLUTE EOSINOPHILS # (AUTO) 0.1 10^3/uL (0.0-0.6); ABSOLUTE LYMPHOCYTES (AUTO) 1.9 10^3/uL (0.5-4.7); ABSOLUTE MONOCYTES (AUTO) 0.4 10^3/uL (0.1-1.4); ABSOLUTE NEUT (AUTO) 3.6 10^3/uL (1.7-8.2); BASOPHILS % (AUTO) 0.4 % (0-2); EOSINOPHILS % (AUTO) 1.2 % (0-6); HEMATOCRIT 41.7 % (36.0-47.0); HEMOGLOBIN 13.9 g/dL (12.0-15.5); LYMPHOCYTES % (AUTO) 32.3 % (13-45); MEAN CORPUSCULAR HEMOGLOBIN 29.2 pg (27.0-33.4); MEAN CORPUSCULAR HGB CONC 33.3 g/dL (32.0-36.0); MEAN CORPUSCULAR VOLUME 88 fl (80-97); MONOCYTES % (AUTO) 6.9 % (3-13); RED BLOOD COUNT 4.75 10^6/uL (3.72-5.28); RED CELL DISTRIBUTION WIDTH 12.5 % (11.5-14.0); SEGMENTED NEUTROPHILS % (AUTO) 59.2 % (42-78)
--- NOTE | 2017-05-12 13:29 | ER Document Report ---
ED Cardiac - General Chief Complaint: Chest Pain Stated Complaint: RIGHT SIDE UPPER CHEST PAIN Time Seen by Provider: 05/12/17 11:57 Mode of Arrival: Ambulatory Information source: Patient Notes: Patient reports she is having left-sided chest pain. She states that it started this morning. She is also noticed that her hands were black and blue at the base of the thumb. She also feels that her eyes are darker concerning the skin surrounding her eyes. Nothing makes the pain better or worse. Pain does not radiate. Pain is been constant. She has no previous history of cardiac disease or chronic medical problems. TRAVEL OUTSIDE OF THE [place] IN LAST 30 DAYS: No COUNTRY TRAVELED TO/FROM: [employer] - Related Data Allergies/Adverse Reactions: penicillin V potassium [From Pen-Vee K] Allergy (Intermediate, Verified 11:05) Hives Sulfa (Sulfonamide Antibiotics) Allergy (Intermediate, Verified 05/12/17 11:05) Hives ibuprofen [From Motrin] Allergy (Mild, Verified 05/12/17 11:05) Hives metronidazole [From Flagyl] Allergy (Mild, Verified 05/12/17 11:05) rash Metronidazole HCl [From Flagyl] Allergy (Mild, Verified 05/12/17 11:05) rash Penicillins Allergy (Verified 05/12/17 11:05) Past Medical History - General Information source: Patient - Social History Smoking Status: Never Smoker Chew tobacco use (# tins/day): No Frequency of alcohol use: None Drug Abuse: None Family History: Arthritis, CAD, CVA, DM, Hyperlipidemia, Hypertension, Thyroid Disfunction Patient has suicidal ideation: No Endocrine Medical History: Renal/ Medical History: Reports: Hx Ovarian Cysts. Denies: Hx Peritoneal Dialysis GI Medical History: Reports: Hx Gastroesophageal Reflux Disease Musculoskeltal Medical History: Reports Hx Arthritis, Reports Hx Musculoskeletal Deformity - scoliosis Psychiatric Medical History: Reports: Hx Anxiety Surgical Hx: Negative - Immunizations Immunizations up to date: Yes Hx Diphtheria, Pertussis, Tetanus Vaccination: Yes - 2010 Review of Systems - Review of Systems Constitutional: denies: Chills, Fever Cardiovascular: Chest pain. denies: Palpitations Respiratory: denies: Cough, Short of breath -: Yes All other systems reviewed and negative Physical Exam - Vital signs Vitals: Resp 16 05/12/17 11:06 Interpretation: Normal - General General appearance: Appears well, Alert - HEENT Head: Normocephalic, Atraumatic Eyes: Normal Pupils: PERRL - Respiratory Respiratory status: No respiratory distress Chest status: Nontender Breath sounds: Normal Chest palpation: Normal - Cardiovascular Rhythm: Regular Heart sounds: Normal auscultation Murmur: No - Abdominal Inspection: Normal Distension: No distension Bowel sounds: Normal Tenderness: Nontender Organomegaly: No organomegaly - Back Back: Normal, Nontender - Extremities General upper extremity: Normal inspection, Nontender, Normal color, Normal ROM , Normal temperature General lower extremity: Normal inspection, Nontender, Normal color, Normal ROM , Normal temperature, Normal weight bearing. No: Ankit's sign - Neurological Neuro grossly intact: Yes Cognition: Normal Orientation: AAOx4 Purmela Coma Scale Eye Opening: Spontaneous Purmela Coma Scale Verbal: Oriented Adeola Coma Scale Motor: Obeys Commands Adeola Coma Scale Total: 15 Speech: Normal Motor strength normal: LUE, RUE, LLE, RLE Sensory: Normal - Psychological Associated symptoms: Normal affect, Normal mood - Skin Skin Temperature: Warm Skin Moisture: Dry Skin Color: Normal Course - Vital Signs Vital signs: Temp Pulse Resp BP Pulse Ox 99.2 F 81 16 120/74 98 05/12/17 11:07 05/12/17 11:07 05/12/17 11:06 05/12/17 11:07 05/12/17 11:07 - Laboratory Result Diagrams: 05/12/17 12:55 05/12/17 12:14 - Diagnostic Test Radiology reviewed: Image reviewed, Reports reviewed - EKG Interpretation by Me EKG shows normal: Sinus rhythm Rate: Normal Rhythm: NSR [place]on/QRS: No: Right axis deviation, Left axis deviation - no acute path on xray Discharge - Discharge Clinical Impression: Atypical chest pain Condition: Stable Disposition: HOME, SELF-CARE Instructions: Chest Pain of Unclear Cause ([facility]) Additional Instructions: Please follow-up with your primary care physician as soon as possible
--- NOTE | 2017-05-12 14:07 | RADIOLOGY REPORT (SQ) ---
EXAM DESCRIPTION: CHEST PA/LAT COMPLETED DATE/TIME: 05/12/2017 1:23 pm REASON FOR STUDY: cp COMPARISON: 03/08/2017 EXAM PARAMETERS: NUMBER OF VIEWS: two views TECHNIQUE: Digital Frontal and Lateral radiographic views of the chest acquired. RADIATION DOSE: NA LIMITATIONS: none FINDINGS: LUNGS AND PLEURA: No opacities, masses or pneumothorax. No pleural effusion. MEDIASTINUM AND HILAR STRUCTURES: No masses or contour abnormalities. HEART AND VASCULAR STRUCTURES: Heart normal size. No evidence for failure. BONES: No acute findings. HARDWARE: None in the chest. OTHER: No other significant finding. IMPRESSION: NO SIGNIFICANT RADIOGRAPHIC FINDING IN THE CHEST. TECHNICAL DOCUMENTATION: JOB ID: [id number] [employer]- All Rights Reserved
--- NOTE | 2017-05-12 18:36 | EKG REPORT ---
SEVERITY:- NORMAL ECG - SINUS RHYTHM : Confirmed by: Lizzy Lieberman 12-May-2017 18:35:24
== END 2017-05-12 13:38 | disposition home or self-care (01) ==
LOC: ER 10:59
DX: R07.89 Other chest pain (principal)
CPT/HCPCS: 36415; 71020; 80053; 81001; 81025; 84484; 85025; 93005; 93010; 99285

== ENCOUNTER → 2017-09-10 | Outpatient (CLI) | payer BC ==
--- NOTE | 2017-09-10 11:44 | WOMENS IMAGING REPORT ---
EXAM DESCRIPTION: 3D SCREENING MAMMO BILAT COMPLETED DATE/TIME: 09/10/2017 9:43 am REASON FOR STUDY: ROUTINE SCREENING; Z12.31 Z12.31 ENCNTR SCREEN MAMMOGRAM FOR MALIGNANT NEOPLASM O F MANOHAR COMPARISON: None. TECHNIQUE: Standard craniocaudal and mediolateral oblique views of each breast recorded using digita l acquisition and breast tomosynthesis. LIMITATIONS: None. FINDINGS: No masses, calcifications or architectural distortion. No areas of suspicion. Read with the assistance of CAD. .[facility] - R2 Cenova Version 1.3 .[facility] - R2 Cenova Version 1.3 .[facility] - R2 Cenova Version 2.4 .[facility] - R2 Cenova Version 2.4 .[facility] - R2 Tele[employer] Network Engineer Version 9.2 IMPRESSION: NORMAL MAMMOGRAM. BIRADS 1. BREAST DENSITY: b. There are scattered areas of fibroglandular density. BIRAD: 1 NEGATIVE RECOMMENDATION: ROUTINE SCREENING COMMENT: The patient has been notified of the results by letter per SA requirements. Additional no tification policies are in place for contacting patient with suspicious or incomplete findings. Quality ID #[id number]: The [employer] recommends an annual screening mammogram for women aged 40 years or over. This facility utilizes a reminder system to ensure that all patients receive reminder letters, and/or direct phone calls for appointments. This includes reminders for routine scr eening mammograms, diagnostic mammograms, or other Breast Imaging Interventions when appropriate. Th is patient will be placed in the appropriate reminder system. The [employer] (ACR) has developed recommendations for screening MRI of the breast s in certain patient populations, to be used in conjunction with mammography. Breast MRI surveillanc e may be appropriate for women with more than 20% lifetime risk of developing breast cancer as deter mined by genetic testing, significant family history of the disease, or history of mantle radiation f or Hodgkins Disease. ACR Practice Guidelines 2008. DBT Technology DBT is a type of tomographic mammography. With conventional mammography, overlapping breast tissue ma y make lesions difficult to detect, even with good compression. DBT uses an x-ray tube that rotates a round the breast, taking images at different angles. These images are then combined to create thin sl ices of the breast that the radiologist can view as a 3D reconstruction. The [employer] unit can perform full-field digital mammograms (2D imaging); or DBT (3D imaging); or both, in a combination mode that quickly performs both the mammogram and the tomosynthesis scan while the breast is still compressed. PQRS 6045F: Fluoroscopic imaging is not utilized for breast tomosynthesis. TECHNICAL DOCUMENTATION: FINDING NUMBER: (1) ASSESSMENT: (1) JOB ID: [id number] [employer]- All Rights Reserved
== END ==
LOC: WI 09:11
PROVIDERS: ATTEND Nurse Practitioner
DX: Z12.31 Encounter for screening mammogram for malignant neoplasm of breast (principal)
CPT/HCPCS: 77063; 77067

== ENCOUNTER 2017-12-15 12:27 | Emergency (ER) | payer BC, MEDICAID ==
--- NOTE | 2017-12-15 12:50 | ER Document Report ---
ED Medical Screen (RME) - General Chief Complaint: Vaginal Bleeding Stated Complaint: VAGINAL BLEEDING Time Seen by Provider: 12/15/17 12:40 Notes: RAPID MEDICAL EVALUATION DISCLOSURE I have seen this patient as part of a Rapid Medical Evaluation and, if applicable, placed any initially appropriate orders. The patient will be seen and fully evaluated, including a full history and physical exam, by a provider ( in Main ED or Fast Track) when a room becomes available. 42-year-old female who with complaints of vaginal spotting over the past 1 day. She has had some white vaginal discharge as well as lower abdominal cramping. Some nausea no vomiting. She is 6 weeks per the health department but has not yet seen an EMBROIDERY WORKER or had an ultrasound. EXAM Minimal right/left lower quadrant TTP Mild to moderate suprapubic TTP TRAVEL OUTSIDE OF THE [place] IN LAST 30 DAYS: No COUNTRY TRAVELED TO/FROM: [employer] - Related Data Allergies/Adverse Reactions: penicillin V potassium [From Pen-Vee K] Allergy (Intermediate, Verified 12:39) Hives Sulfa (Sulfonamide Antibiotics) Allergy (Intermediate, Verified 12/15/17 12:39) Hives ibuprofen [From Motrin] Allergy (Mild, Verified 12/15/17 12:39) Hives metronidazole [From Flagyl] Allergy (Mild, Verified 12/15/17 12:39) rash Metronidazole HCl [From Flagyl] Allergy (Mild, Verified 12/15/17 12:39) rash Penicillins Allergy (Verified 12/15/17 12:39) Past Medical History - Social History Chew tobacco use (# tins/day): No Frequency of alcohol use: None Drug Abuse: None Family history: Reviewed & Not Pertinent Endocrine Medical History: Renal/ Medical History: Reports: Hx Ovarian Cysts. Denies: Hx Peritoneal Dialysis GI Medical History: Reports: Hx Gastroesophageal Reflux Disease Musculoskeltal Medical History: Reports Hx Arthritis, Reports Hx Musculoskeletal Deformity - scoliosis Psychiatric Medical History: Reports: Hx Anxiety - Immunizations Immunizations up to date: Yes Hx Diphtheria, Pertussis, Tetanus Vaccination: Yes - 2010 Physical Exam - Vital signs Vitals: Temp Pulse Resp BP Pulse Ox 99.1 F 82 14 115/62 100 12/15/17 12:31 12/15/17 12:31 12/15/17 12:31 12/15/17 12:31 12/15/17 12:31 Course - Vital Signs Vital signs: Temp Pulse Resp BP Pulse Ox 99.1 F 82 14 115/62 100 12/15/17 12:31 12/15/17 12:31 12/15/17 12:31 12/15/17 12:31 12/15/17 12:31
--- NOTE | 2017-12-15 16:00 | RADIOLOGY REPORT (SQ) ---
EXAM DESCRIPTION: U/S OB TRANSVAGINAL W/O DOP COMPLETED DATE/TIME: 12/15/2017 3:46 pm REASON FOR STUDY: lower abd cramping 6wk preg; ectopic miscarriage? COMPARISON: None. TECHNIQUE: Endovaginal static and realtime grayscale images acquired of the pelvis. Additional selec darlin spectral and color Doppler images recorded. All images stored on PACs. [facility],130 CLINICAL DATES: Last menses 11/03/2017 LIMITATIONS: None. FINDINGS: An intrauterine gestational sac is present with double decidual reaction sign. However, t he yolk sac and embryo are not yet seen. By mean sac diameter, estimated age is 5 weeks 4 days. Est imated due date 08/13/2018. SUBCHORIONIC BLEED: No SIZE OF BLEED: Not applicable. UTERUS: No masses. No anomalies. Uterus is 10 x 8 x 7 cm in size. CERVICAL LENGTH: 2.7 cm. Closed. RIGHT ADNEXA: Normal ovary with normal vascular flow. Right ovary 3.6 x 3.1 x 2.9 cm in size. No adnexal free fluid. No adnexal masses. LEFT ADNEXA: Not well visualized due to adnexal bowel gas. FREE FLUID: None. OTHER: No other significant finding. IMPRESSION: Intrauterine gestational sac with surrounding decidual reaction. Embryo not yet seen. By mean sac diameter estimated age is 5 weeks 4 days. Left adnexa not well seen. Pseudo gestational sac due to ectopic could not entirely be excluded. Recommend close clin ical follow-up with serial quantitative HCG and follow-up ultrasound Trimester of : First - 0 to 13 weeks. TECHNICAL DOCUMENTATION: JOB ID: [id number] [employer]- All Rights Reserved rev-12/12 Reading location - IP/workstation name: [email or web address]
[2017-12-15 16:53] LABS: APPEARANCE,URINE CLEAR; BILIRUBIN,URINE NEGATIVE (NEGATIVE); COLOR,URINE YELLOW; GLUCOSE, URINE NEGATIVE (NEGATIVE); KETONES,URINE NEGATIVE (NEGATIVE); LEUKOCYTE ESTERASE,URINE NEGATIVE (NEGATIVE); NITRITE,URINE NEGATIVE (NEGATIVE); PROTEIN,URINE NEGATIVE (NEGATIVE); UROBILINOGEN,URINE NEGATIVE mg/dL (<2.0)
[2017-12-15 17:08] LABS: BACTERIA (WET MOUNT) 4+ BACTERIA SEEN; EPITHELIALS (WET MOUNT) 3+ EPITHELIALS SEEN; T.VAGINALIS (WET MOUNT) NO TRICHOMONAS SEEN; WBCS (WET MOUNT) FEW WBCS SEEN; YEAST (WET MOUNT) NO YEAST SEEN
--- NOTE | 2017-12-15 17:47 | ER Document Report ---
ED General - General Chief Complaint: Vaginal Bleeding Stated Complaint: VAGINAL BLEEDING Time Seen by Provider: 12/15/17 12:40 Mode of Arrival: Ambulatory Information source: Patient TRAVEL OUTSIDE OF THE [place] IN LAST 30 DAYS: No COUNTRY TRAVELED TO/FROM: [facility] Notes: Patient is a pleasant 42-year-old female presents to emergency department with reports that she is a currently 6 weeks comes in with minimal vaginal discharge and occasional spotting. She reports slight suprapubic crampiness previously. No current abdominal pain. No recent intercourse. The patient states she drank fluids and this seemed to improve. She does report some prior nausea with the , but denies any vomiting. She reports no back pain or chest pain or cough or fever or chills. No leg swelling. No headache. Patient describes no concern for STD. - Related Data Allergies/Adverse Reactions: penicillin V potassium [From Pen-Vee K] Allergy (Intermediate, Verified 12:39) Hives Sulfa (Sulfonamide Antibiotics) Allergy (Intermediate, Verified 12/15/17 12:39) Hives ibuprofen [From Motrin] Allergy (Mild, Verified 12/15/17 12:39) Hives metronidazole [From Flagyl] Allergy (Mild, Verified 12/15/17 12:39) rash Metronidazole HCl [From Flagyl] Allergy (Mild, Verified 12/15/17 12:39) rash Penicillins Allergy (Verified 12/15/17 12:39) Past Medical History - General Information source: Patient - Social History Smoking Status: Unknown if Ever Smoked Chew tobacco use (# tins/day): No Frequency of alcohol use: None Drug Abuse: None Lives with: Family Family History: Arthritis, CAD, CVA, DM, Hyperlipidemia, Hypertension, Thyroid Disfunction Patient has suicidal ideation: No Patient has homicidal ideation: No Endocrine Medical History: Renal/ Medical History: Reports: Hx Ovarian Cysts. Denies: Hx Peritoneal Dialysis GI Medical History: Reports: Hx Gastroesophageal Reflux Disease Musculoskeltal Medical History: Reports Hx Arthritis, Reports Hx Musculoskeletal Deformity - scoliosis Psychiatric Medical History: Reports: Hx Anxiety - Immunizations Immunizations up to date: Yes Hx Diphtheria, Pertussis, Tetanus Vaccination: Yes - 2010 Review of Systems - Review of Systems Notes: REVIEW OF SYSTEMS: CONSTITUTIONAL : Denies fever, chills, or sweats. Denies recent illness. EENT: Denies eye, ear, throat, or mouth pain or symptoms. Denies nasal or sinus congestion or discharge. Denies throat, tongue, or mouth swelling or difficulty swallowing. CARDIOVASCULAR: Denies chest pain. Denies palpitations or racing or irregular heart beat. Denies ankle edema. RESPIRATORY: Denies cough, cold, or chest congestion. Denies shortness of breath, difficulty breathing, or wheezing. GASTROINTESTINAL: Denies current abdominal pain or distention. Denies vomiting , or diarrhea. Denies blood in vomitus, stools, or per rectum. Denies black, tarry stools. Denies constipation. GENITOURINARY: Denies difficulty urinating, painful urination, burning, frequency, blood in urine, or discharge. FEMALE GENITOURINARY: Denies vaginal odor. MUSCULOSKELETAL: Denies back or neck pain or stiffness. Denies joint pain or swelling. SKIN: Denies rash, lesions or sores. HEMATOLOGIC : Denies easy bruising or bleeding. LYMPHATIC: Denies swollen, enlarged glands. NEUROLOGICAL: Denies confusion or altered mental status. Denies passing out or loss of consciousness. Denies dizziness or lightheadedness. Denies headache. Denies weakness or paralysis or loss of use of either side. Denies problems with gait or speech. Denies sensory loss, numbness, or tingling. Denies seizures. PSYCHIATRIC: Denies anxiety or stress. Denies depression, suicidal ideation, or homicidal ideation. ALL OTHER SYSTEMS REVIEWED AND NEGATIVE. Dictation was performed using [employer] voice recognition software Physical Exam - Vital signs Vitals: Temp Pulse Resp BP Pulse Ox 99.1 F 82 14 115/62 100 12/15/17 12:31 12/15/17 12:31 12/15/17 12:31 12/15/17 12:12/15/17 12:31 - Notes Notes: PHYSICAL EXAMINATION: GENERAL: Well-appearing, well-nourished and in no acute distress. HEAD: Atraumatic, normocephalic. EYES: Pupils equal round and reactive to light, extraocular movements intact, conjunctiva are normal. ENT: Nares patent, oropharynx clear without exudates. Moist mucous membranes. NECK: Normal range of motion, supple without lymphadenopathy LUNGS: Breath sounds clear to auscultation bilaterally and equal. No wheezes rales or rhonchi. HEART: Regular rate and rhythm without murmurs ABDOMEN: Soft, nontender, nondistended abdomen. No guarding, no rebound. No masses appreciated. Female : Normal external female genitalia. Minimal discharge noted that is whitish to clear. No cervical motion tenderness. No adnexal mass or tenderness. No lesions identified. Cervix is closed and thick. There is no evidence for any current bleeding. Musculoskeletal: Normal range of motion, no pitting or edema. No cyanosis. NEUROLOGICAL: Cranial nerves grossly intact. Normal speech, normal gait. Normal sensory, motor exams PSYCH: Normal mood, normal affect. SKIN: Warm, Dry, normal turgor, no rashes or lesions noted. Course - Re-evaluation Re-evalutation: 12/15/17 18:59 Ultrasound showed intrauterine gestational sac, no obvious pole. No adnexal tenderness or lesions noted. Patient was given a copy of the ultrasound results and the rest of her lab studies. She will follow-up with women's health in 2 days for repeat hCG quantitative level versus repeat ultrasound. The patient was informed that I could not exclude a blighted ovum or ectopic and she needed close follow-up. She will return in case of severe bleeding or fever or chills or abdominal pain. Urine was somewhat equivocal for UTI, and the patient had a urine culture obtained. Gonorrhea chlamydial study is sent which is pending. - Vital Signs Vital signs: Temp Pulse Resp BP Pulse Ox 98.4 F 73 14 112/71 100 12/15/17 17:46 12/15/17 17:46 12/15/17 17:46 12/15/17 17:46 12/15/17 17:46 - Laboratory Laboratory results interpreted by me: 12/15/17 13:50 Beta HCG, Quant 95870.00 H Discharge - Discharge Clinical Impression: Bacterial vaginosis Qualifiers: Weeks of gestation: less than 8 weeks Qualified Code(s): Z3A.01 - Less than 8 weeks gestation of Condition: Stable Disposition: HOME, SELF-CARE Instructions: Vaginosis, Bacterial ([facility]) Additional Instructions: Drink plenty of fluids. Return to the emergency department in case of severe pain or bleeding or fever. No tampons. No intercourse. Prescriptions: Clindamycin Phosphate [Cleocin 100 mg Vaginal Suppository] 100 mg VG DAILY #7 supp.vag Referrals: MARISOL CARSON MD [ACTIVE STAFF] - 12/17/17
[2017-12-15 17:49] VITALS: BP 112/71
[2017-12-15 18:33] LABS: CHLAM PCR NOT DETECTED (NOT DETECT); GON PCR NOT DETECTED (NOT DETECT)
== END 2017-12-15 17:49 | disposition home or self-care (01) ==
LOC: ER 12:27
DX: O23.591 Infection of other part of genital tract in pregnancy, first trimester (principal); B96.89 Other specified bacterial agents as the cause of diseases classified elsewhere; O26.851 Spotting complicating pregnancy, first trimester; Z3A.01 Less than 8 weeks gestation of pregnancy; Z88.0 Allergy status to penicillin; Z88.2 Allergy status to sulfonamides; Z88.6 Allergy status to analgesic agent; Z88.1 Allergy status to other antibiotic agents
CPT/HCPCS: 36415; 76817; 81001; 84702; 86900; 86901; 87210; 87491; 87591; 99284

== ENCOUNTER 2018-01-14 11:11 | Emergency (ER) | payer MEDICAID ==
--- NOTE | 2018-01-14 11:38 | ER Document Report ---
ED Medical Screen (RME) - General Chief Complaint: Vag Bleeding, +preg <12wks Stated Complaint: VAGINAL BLEEDING Time Seen by Provider: 01/14/18 11:35 Notes: 42-year-old female, , 9 weeks by prior ultrasound, presents with vaginal spotting since last night. Her blood type is A+. Denies abdominal cramping or urinary symptoms. PE: NAD. Abdomen soft and non-tender. I have greeted and performed a rapid initial assessment of this patient. A comprehensive ED assessment and evaluation of the patient, analysis of test results and completion of the medical decision making process will be conducted by additional ED providers. TRAVEL OUTSIDE OF THE [place] IN LAST 30 DAYS: No COUNTRY TRAVELED TO/FROM: [employer] - Related Data Allergies/Adverse Reactions: penicillin V potassium [From Pen-Vee K] Allergy (Intermediate, Verified 11:37) Hives Sulfa (Sulfonamide Antibiotics) Allergy (Intermediate, Verified 01/14/18 11:37) Hives ibuprofen [From Motrin] Allergy (Mild, Verified 01/14/18 11:37) Hives metronidazole [From Flagyl] Allergy (Mild, Verified 01/14/18 11:37) rash Metronidazole HCl [From Flagyl] Allergy (Mild, Verified 01/14/18 11:37) rash Penicillins Allergy (Verified 01/14/18 11:37) Past Medical History - General Last Menstrual Period: 11-03-2017 - Social History Chew tobacco use (# tins/day): No Frequency of alcohol use: None Drug Abuse: None Family history: Reviewed & Not Pertinent Endocrine Medical History: Renal/ Medical History: Reports: Hx Ovarian Cysts. Denies: Hx Peritoneal Dialysis GI Medical History: Reports: Hx Gastroesophageal Reflux Disease Musculoskeltal Medical History: Reports Hx Arthritis, Reports Hx Musculoskeletal Deformity - scoliosis Psychiatric Medical History: Reports: Hx Anxiety - Immunizations Immunizations up to date: Yes Hx Diphtheria, Pertussis, Tetanus Vaccination: Yes - 2010 Physical Exam - Vital signs Vitals: Temp Pulse Resp BP Pulse Ox 98.6 F 64 18 133/85 H 97 01/14/18 11:21 01/14/18 11:21 01/14/18 11:21 01/14/18 11:21 01/14/18 11:21 Course - Vital Signs Vital signs: Temp Pulse Resp BP Pulse Ox 98.6 F 64 18 133/85 H 97 01/14/18 11:21 01/14/18 11:21 01/14/18 11:21 01/14/18 11:21 01/14/18 11:21
[2018-01-14 13:00] LABS: ABSOLUTE LYMPHOCYTES (AUTO) 1.7 10^3/uL (0.5-4.7); ABSOLUTE MONOCYTES (AUTO) 0.5 10^3/uL (0.1-1.4); ABSOLUTE NEUT (AUTO) 5.9 10^3/uL (1.7-8.2); BASOPHILS % (AUTO) 0.3 % (0-2); EOSINOPHILS % (AUTO) 0.6 % (0-6); HEMATOCRIT 42.9 % (36.0-47.0); HEMOGLOBIN 14.6 g/dL (12.0-15.5); LYMPHOCYTES % (AUTO) 20.7 % (13-45); MEAN CORPUSCULAR HGB CONC 33.9 g/dL (32.0-36.0); MEAN CORPUSCULAR VOLUME 88 fl (80-97); MONOCYTES % (AUTO) 5.6 % (3-13); PLATELET COUNT 254 10^3/uL (150-450); RED BLOOD COUNT 4.86 10^6/uL (3.72-5.28); RED CELL DISTRIBUTION WIDTH 12.9 % (11.5-14.0); SEGMENTED NEUTROPHILS % (AUTO) 72.8 % (42-78); TOTAL CELLS COUNTED % (AUTO) 100 %; WHITE BLOOD COUNT 8.1 10^3/uL (4.0-10.5)
--- NOTE | 2018-01-14 13:18 | RADIOLOGY REPORT (SQ) ---
EXAM DESCRIPTION: U/S [id number] TRNABD 1GES W/ODOP COMPLETED DATE/TIME: 01/14/2018 12:28 pm REASON FOR STUDY: 9 weeks, vaginal spotting COMPARISON: 12/15/2017 TECHNIQUE: Transvaginal and transabdominal static and realtime grayscale images acquired of the pelv is. Additional selected spectral and color Doppler images recorded. All images stored on PACs. bHCG: Not available LIMITATIONS: None. FINDINGS: UTERUS: No masses. No anomalies. GESTATIONAL SAC: Visualized measures 6 weeks 4 days YOLK SAC: Not visualized POLE: Not visualized RIGHT ADNEXA: Normal ovary with normal vascular flow. No adnexal free fluid. No adnexal masses. LEFT ADNEXA: Normal ovary with normal vascular flow. No adnexal free fluid. No adnexal masses. FREE FLUID: None. OTHER: No other significant finding. IMPRESSION: Findings suspicious for an anembryonic . Clinical correlation is recommended. CONSIDER F/U BHCG AND/OR ULTRASOUND FOR VERIFICATION of a living gestation. Trimester of : First - 0 to 13 weeks. TECHNICAL DOCUMENTATION: JOB ID: [id number] [employer]- All Rights Reserved Reading location - IP/workstation name: [email or web address]
--- NOTE | 2018-01-14 14:10 | ER Document Report ---
ED GI/ - General Chief Complaint: Vag Bleeding, +preg <12wks Stated Complaint: VAGINAL BLEEDING Time Seen by Provider: 01/14/18 11:35 Mode of Arrival: Ambulatory Information source: Patient Notes: Patient is a 42-year-old female who presents approximately 9 weeks for vaginal bleeding/spotting that started yesterday. Patient went to her [facility] today and had an ultrasound done which showed "no heart tones" per patient. Patient states that she came here to have "closure and confirmation." Patient denies any pain in the abdomen or cramping at all. She denies passing any blood clots or lightheadedness. They have another ultrasound scheduled for her in 2 days because she requested at the [facility]. TRAVEL OUTSIDE OF THE [place] IN LAST 30 DAYS: No COUNTRY TRAVELED TO/FROM: [facility] Patient complains to provider of: Other - Related Data Allergies/Adverse Reactions: penicillin V potassium [From Pen-Vee K] Allergy (Intermediate, Verified 11:37) Hives Sulfa (Sulfonamide Antibiotics) Allergy (Intermediate, Verified 01/14/18 11:37) Hives ibuprofen [From Motrin] Allergy (Mild, Verified 01/14/18 11:37) Hives metronidazole [From Flagyl] Allergy (Mild, Verified 01/14/18 11:37) rash Metronidazole HCl [From Flagyl] Allergy (Mild, Verified 01/14/18 11:37) rash Penicillins Allergy (Verified 01/14/18 11:37) Past Medical History - General Information source: Patient Last Menstrual Period: 11-03-2017 - Social History Smoking Status: Never Smoker Chew tobacco use (# tins/day): No Frequency of alcohol use: None Drug Abuse: None Family History: Arthritis, CAD, CVA, DM, Hyperlipidemia, Hypertension, Thyroid Disfunction Patient has suicidal ideation: No Patient has homicidal ideation: No Endocrine Medical History: Renal/ Medical History: Reports: Hx Ovarian Cysts. Denies: Hx Peritoneal Dialysis GI Medical History: Reports: Hx Gastroesophageal Reflux Disease Musculoskeltal Medical History: Reports Hx Arthritis, Reports Hx Musculoskeletal Deformity - scoliosis Psychiatric Medical History: Reports: Hx Anxiety - Immunizations Immunizations up to date: Yes Hx Diphtheria, Pertussis, Tetanus Vaccination: Yes - 2010 Review of Systems - Review of Systems Constitutional: No symptoms reported EENT: No symptoms reported Cardiovascular: No symptoms reported Respiratory: No symptoms reported Gastrointestinal: No symptoms reported Genitourinary: No symptoms reported Female Genitourinary: See HPI Musculoskeletal: No symptoms reported Skin: No symptoms reported Hematologic/Lymphatic: No symptoms reported Neurological/Psychological: No symptoms reported Physical Exam - Vital signs Vitals: Temp Pulse Resp BP Pulse Ox 98.6 F 64 18 133/85 H 97 01/14/18 11:21 01/14/18 11:21 01/14/18 11:21 01/14/18 11:21 01/14/18 11:21 - Notes Notes: PHYSICAL EXAMINATION: GENERAL: Tearful, but in no acute distress. HEAD: Atraumatic, normocephalic. EYES: Pupils equal round and reactive to light, extraocular movements intact, sclera anicteric, conjunctiva are normal. NECK: Normal range of motion, supple without lymphadenopathy LUNGS: CTAB and equal. No wheezes rales or rhonchi. HEART: Regular rate and rhythm without murmurs ABDOMEN: Soft, no tenderness. No guarding, no rebound BACK: no vertebral tenderness, normal ROM GI/: no CVA tenderness EXTREMITIES: Normal range of motion, no pitting edema. No cyanosis. NEUROLOGICAL: Cranial nerves grossly intact. Normal sensory/motor exams. PSYCH: Tearful SKIN: Warm, Dry, normal turgor, no rashes or lesions noted Course - Re-evaluation Re-evalutation: 01/14/18 18:35 Ultrasound reports a gestational sac measuring 6 weeks and 4 days but no pole or yolk sac noted on ultrasound. Patient states that her last ultrasound that was normal at the [facility] did show a yolk sac and have heart rate. I called Dr. Arevalo, L[facility]END[facility] electrician station assistant who is actually patient's normal LUNCHROOM ATTENDANT in the office who states that this represents demise. I did inform the patient of this and she is very tearful but then goes on to state "miracles happen." I did advise her that the LUNCHROOM ATTENDANT did take a look at both ultrasounds from today as he had access to the one at the office as well and stated again that this is definitely a demise. He is at his office right now and states that she can come over and talk to him that she would like. - Vital Signs Vital signs: Temp Pulse Resp BP Pulse Ox 98.5 F 73 18 132/82 H 98 01/14/18 14:13 01/14/18 14:13 01/14/18 11:21 01/14/18 14:13 01/14/18 14:13 - Laboratory Result Diagrams: 01/14/18 12:40 Laboratory results interpreted by me: 01/14/18 12:40 Beta HCG, Quant 87730.00 H Discharge - Discharge Clinical Impression: demise Condition: Stable Disposition: HOME, SELF-CARE Additional Instructions: Return immediately for any new or worsening symptoms. Follow up with primary care provider, call tomorrow to make followup appointment. Referrals: [facility] [Provider Group] - Follow up as needed
[2018-01-14 14:14] VITALS: BP 132/82
== END 2018-01-14 14:37 | disposition home or self-care (01) ==
LOC: ER 11:11
DX: O03.9 Complete or unspecified spontaneous abortion without complication (principal); Z88.0 Allergy status to penicillin; Z88.2 Allergy status to sulfonamides; Z88.6 Allergy status to analgesic agent; Z88.1 Allergy status to other antibiotic agents
CPT/HCPCS: 36415; 76801; 84702; 85025; 86900; 86901; 99284

== ENCOUNTER 2018-01-23 15:50 | Emergency (ER) | payer MEDICAID ==
--- NOTE | 2018-01-23 16:15 | ER Document Report ---
ED Medical Screen (RME) - General Chief Complaint: Leg Swelling Stated Complaint: WEAKNESS, HEADACHES, Time Seen by Provider: 01/23/18 16:06 Notes: RAPID MEDICAL EVALUATION DISCLOSURE I have seen this patient as part of a Rapid Medical Evaluation and, if applicable, placed any initially appropriate orders. The patient will be seen and fully evaluated, including a full history and physical exam, by a provider ( in Main ED or Fast Track) when a room becomes available. 6-year-old female here with complaints of foot and ankle swelling, chest discomfort, shortness of breath, lightheadedness ongoing for the past few days. She reports that she recently had a miscarriage and has passed the and the symptoms started shortly thereafter. She had some vaginal bleeding and still has it however it is slowly improving and resolving. Her chest discomfort is worse with breathing and but not exertion. She denies any prior history of PR hypertension diabetes hyperlipidemia. Denies any prior history of PE DVT. EXAM CTAB RRR No significant appreciable BLE edema TRAVEL OUTSIDE OF THE [place] IN LAST 30 DAYS: No COUNTRY TRAVELED TO/FROM: [facility] - Related Data Allergies/Adverse Reactions: penicillin V potassium [From Pen-Vee K] Allergy (Intermediate, Verified 18:09) Hives Sulfa (Sulfonamide Antibiotics) Allergy (Intermediate, Verified 01/17/18 18:09) Hives ibuprofen [From Motrin] Allergy (Mild, Verified 01/17/18 18:09) Hives metronidazole [From Flagyl] Allergy (Mild, Verified 01/17/18 18:09) rash Metronidazole HCl [From Flagyl] Allergy (Mild, Verified 01/17/18 18:09) rash Penicillins Allergy (Verified 01/17/18 18:09) Past Medical History - Social History Chew tobacco use (# tins/day): No Frequency of alcohol use: None Drug Abuse: None Family history: Reviewed & Not Pertinent Endocrine Medical History: Renal/ Medical History: Reports: Hx Ovarian Cysts. Denies: Hx Peritoneal Dialysis GI Medical History: Reports: Hx Gastroesophageal Reflux Disease Musculoskeltal Medical History: Reports Hx Arthritis, Reports Hx Musculoskeletal Deformity - scoliosis Psychiatric Medical History: Reports: Hx Anxiety - Immunizations Immunizations up to date: Yes Hx Diphtheria, Pertussis, Tetanus Vaccination: Yes - 2010 Physical Exam - Vital signs Vitals: Temp Pulse Resp BP Pulse Ox 99.2 F 72 16 121/85 96 01/23/18 15:56 01/23/18 15:56 01/23/18 15:56 01/23/18 15:56 01/23/18 15:56 Course - Vital Signs Vital signs: Temp Pulse Resp BP Pulse Ox 99.2 F 72 16 121/85 96 01/23/18 15:56 01/23/18 15:56 01/23/18 15:56 01/23/18 15:56 01/23/18 15:56 Doctor's Discharge - Discharge Referrals: NICK NEWSOME NP [Primary Care Provider] - Follow up as needed
[2018-01-23 16:58] LABS: ABSOLUTE EOSINOPHILS # (AUTO) 0.1 10^3/uL (0.0-0.6); ABSOLUTE LYMPHOCYTES (AUTO) 2.3 10^3/uL (0.5-4.7); ABSOLUTE MONOCYTES (AUTO) 0.4 10^3/uL (0.1-1.4); ABSOLUTE NEUT (AUTO) 3.8 10^3/uL (1.7-8.2); BASOPHILS % (AUTO) 0.6 % (0-2); EOSINOPHILS % (AUTO) 2.2 % (0-6); HEMATOCRIT 37.1 % (36.0-47.0); HEMOGLOBIN 12.5 g/dL (12.0-15.5); LYMPHOCYTES % (AUTO) 34.3 % (13-45); MEAN CORPUSCULAR HEMOGLOBIN 30.3 pg (27.0-33.4); MEAN CORPUSCULAR HGB CONC 33.8 g/dL (32.0-36.0); MEAN CORPUSCULAR VOLUME 90 fl (80-97); MONOCYTES % (AUTO) 5.8 % (3-13); RED BLOOD COUNT 4.14 10^6/uL (3.72-5.28); RED CELL DISTRIBUTION WIDTH 12.9 % (11.5-14.0); SEGMENTED NEUTROPHILS % (AUTO) 57.1 % (42-78); TOTAL CELLS COUNTED % (AUTO) 100 %; WHITE BLOOD COUNT 6.7 10^3/uL (4.0-10.5)
--- NOTE | 2018-01-23 17:13 | RADIOLOGY REPORT (SQ) ---
EXAM DESCRIPTION: CHEST 2 VIEWS COMPLETED DATE/TIME: 01/23/2018 5:04 pm REASON FOR STUDY: CP SOB COMPARISON: 05/12/2017 EXAM PARAMETERS: NUMBER OF VIEWS: two views TECHNIQUE: Digital Frontal and Lateral radiographic views of the chest acquired. RADIATION DOSE: NA LIMITATIONS: none FINDINGS: LUNGS AND PLEURA: No opacities, masses or pneumothorax. No pleural effusion. MEDIASTINUM AND HILAR STRUCTURES: No masses or contour abnormalities. HEART AND VASCULAR STRUCTURES: Heart normal size. No evidence for failure. BONES: No acute findings. HARDWARE: None in the chest. OTHER: No other significant finding. IMPRESSION: NO ACUTE RADIOGRAPHIC FINDING IN THE CHEST. TECHNICAL DOCUMENTATION: JOB ID: [id number] [employer]- All Rights Reserved Reading location - IP/workstation name: [email or web address]
[2018-01-23 17:18] LABS: ALANINE AMINOTRANSFERASE 20 U/L (9-52); ALBUMIN 3.7 g/dL (3.5-5.0); ALKALINE PHOSPHATASE 29 U/L (38-126); ANION GAP 9 (5-19); ASPARTATE AMINO TRANSFERASE 25 U/L (14-36); BILIRUBIN,DIRECT 0.3 mg/dL (0.0-0.4); BILIRUBIN,TOTAL 0.4 mg/dL (0.2-1.3); BLOOD UREA NITROGEN 17 mg/dL (7-20); CALCIUM 9.2 mg/dL (8.4-10.2); CARBON DIOXIDE 23 mmol/L (22-30); CHLORIDE 109 mmol/L (98-107); GLUCOSE 82 mg/dL (75-110); PHOSPHORUS 4.1 mg/dL (2.5-4.5); POTASSIUM 4.8 mmol/L (3.6-5.0); SODIUM 141.2 mmol/L (137-145); TOTAL PROTEIN 6.8 g/dL (6.3-8.2)
--- NOTE | 2018-01-23 17:24 | ER Document Report ---
ED Extremity Problem, Lower - General Chief Complaint: Leg Swelling Stated Complaint: WEAKNESS, HEADACHES, Time Seen by Provider: 01/23/18 16:06 Mode of Arrival: Ambulatory Information source: Patient TRAVEL OUTSIDE OF THE [place] IN LAST 30 DAYS: No COUNTRY TRAVELED TO/FROM: [facility] Patient complains to provider of: Swelling Notes: Patient is here with complaints of leg swelling, weakness, intermittent headaches. Patient states that she had a miscarriage within this week and was given Cytotec. She has since followed up with the PSYCHOLOGIST [facility]EL[facility] and was told that everything looks as to be expected. She states that she still is having some vaginal bleeding. The reason she came in the emergency department today is she generally feels weak, she is felt a little dizzy, she has had some intermittent headaches. She denies any lost vision. She denies any unilateral numbness, tingling, weakness. She noticed some swelling to her bilateral ankles over the last few days. She does report feeling a little short of breath but denies any chest pain. She denies any recent long trips or surgeries, she denies any history of DVT or PE. She does not have cancer. She has had no fevers. She denies any significant vomiting or diarrhea at this time. No rashes. No fevers. She not on blood thinning medications. She denies any history of congestive heart failure. She denies any other significant complaints at this time. - Related Data Allergies/Adverse Reactions: penicillin V potassium [From Pen-Vee K] Allergy (Intermediate, Verified 18:09) Hives Sulfa (Sulfonamide Antibiotics) Allergy (Intermediate, Verified 01/17/18 18:09) Hives ibuprofen [From Motrin] Allergy (Mild, Verified 01/17/18 18:09) Hives metronidazole [From Flagyl] Allergy (Mild, Verified 01/17/18 18:09) rash Metronidazole HCl [From Flagyl] Allergy (Mild, Verified 01/17/18 18:09) rash Penicillins Allergy (Verified 01/17/18 18:09) Past Medical History - Social History Smoking Status: Never Smoker Chew tobacco use (# tins/day): No Frequency of alcohol use: None Drug Abuse: None Family History: Arthritis, CAD, CVA, DM, Hyperlipidemia, Hypertension, Thyroid Disfunction Patient has suicidal ideation: No Patient has homicidal ideation: No Endocrine Medical History: Renal/ Medical History: Reports: Hx Ovarian Cysts. Denies: Hx Peritoneal Dialysis GI Medical History: Reports: Hx Gastroesophageal Reflux Disease Musculoskeltal Medical History: Reports Hx Arthritis, Reports Hx Musculoskeletal Deformity - scoliosis Psychiatric Medical History: Reports: Hx Anxiety - Immunizations Immunizations up to date: Yes Hx Diphtheria, Pertussis, Tetanus Vaccination: Yes - 2010 Review of Systems - Review of Systems -: Yes All other systems reviewed and negative Physical Exam - Vital signs Vitals: Temp Pulse Resp BP Pulse Ox 99.2 F 72 16 121/85 96 01/23/18 15:56 01/23/18 15:56 01/23/18 15:56 01/23/18 15:56 01/23/18 15:56 - Notes Notes: GENERAL: alert, cooperative, nontoxic, no distress. HEAD: normocephalic, atraumatic EYES: conjunctiva pink without discharge, no external redness or swelling. Pupils are equal, round, reactive to light. EARS: no external swelling, no external redness NOSE: atraumatic, no external swelling MOUTH/THROAT: mucous membranes moist and pink, posterior pharynx without erythema, swelling, exudate. No trismus or drooling. NECK: soft, supple, full range of motion, no meningismus. CHEST: no distress, lungs clear and equal throughout. No wheezing, rales, rhonchi. CARDIAC: regular rate and rhythm, no murmur, normal capillary refill, normal pulses. Trace pitting edema to the bilateral lower extremities from the mid parmar down. BACK: full range of motion, no CVA tenderness. ABDOMEN: Soft, nontender, no rebound tenderness or guarding. No mass. EXTREMITIES: full range of motion of all extremities. No redness mild pitting edema to the bilateral lower extremities. No erythema. NEURO: alert and oriented x 3, cranial nerves II through XII are grossly intact. Upper and lower extremities are equal throughout. Normal sensation. No focal deficits, full range of motion of all extremities. normal finger to nose. PYSCH: appropriate mood, affect. Patient is cooperative. SKIN: pink, warm, dry, no rash. Course - Re-evaluation Re-evalutation: 01/23/18 19:04 Patient is nontoxic-appearing with stable vitals. She is here with complaints of leg swelling some dizziness some intermittent headaches and general fatigue. Patient recently had a miscarriage. She denies any abdominal pain at this time. Quantitative hCG is down to 500 which is consistent with her recent miscarriage. Hemoglobin is stable at 12.5. He is noted to have some mild pitting edema to the bilateral lower extremities. Venous Doppler is negative of the bilateral lower extremities. Chest x-ray is negative for pleural effusions, cardiomegaly or other acute abnormalities. EKG is unremarkable. Kidney function is normal. Urinalysis shows no significant protein or other acute abnormalities. Blood pressure is unremarkable. She has a nonfocal neurological exam. BNP and troponin are negative. At this point the patient can be discharged home with instructions to follow-up with her primary care doctor she continues to have symptoms. She should follow-up sooner or return emergency department for worsening pain, high fever, persistent vomiting, blurred or loss vision, unilateral numbness, tingling, weakness, or for any further concerns. The patient is noted to have elevated blood pressure during today's emergency department visit. The patient was informed of this finding. The patient was instructed that this may be related to pre-hypertension and requires further evaluation with a primary care provider. The patient has no hypertensive symptoms at this time. The patient's emergency department workup and current diagnosis were explained to the patient and or family. Follow-up instructions were provided. Medications if prescribed were discussed. Instructions for when to return to the emergency department including specific worrisome symptoms were discussed with the patient and/or family. - Vital Signs Vital signs: Temp Pulse Resp BP Pulse Ox 99.2 F 72 16 121/85 96 01/23/18 15:56 01/23/18 15:56 01/23/18 15:56 01/23/18 15:56 01/23/18 15:56 - Laboratory Result Diagrams: 01/23/18 16:31 01/23/18 16:31 Laboratory results interpreted by me: 01/23/18 01/23/18 01/23/18 16:31 16:31 17:54 Chloride 109 H Alkaline Phosphatase 29 L Beta HCG, Quant 514.47 H Urine Ascorbic Acid 40 H - Diagnostic Test Radiology reviewed: Image reviewed, Reports reviewed - Negative chest x-ray - EKG Interpretation by [facility] EKG shows normal: Sinus rhythm, [place], Intervals, QRS Complexes, ST-T Waves Rate: Normal Discharge - Discharge Clinical Impression: Leg edema, Weakness Condition: Stable Disposition: HOME, SELF-CARE Instructions: Leg Pain Nonspecific ([facility]), Weakness ([facility]) Additional Instructions: Follow-up with your doctor at the next available appointment for recheck. Follow-up sooner or return emergency department for worsening swelling, severe pain, chest pain or shortness of breath, high fever, difficulty breathing or swelling, numbness or tingling one side your body, severe headache, loss vision , or for any further concerns. Your blood pressure was elevated during today's visit. Have this rechecked with your doctor. Forms: Elevated Blood Pressure, Smoking Cessation Education Referrals: NICK NEWSOME NP [Primary Care Provider] - Follow up as needed
[2018-01-23 17:25] LABS: PLATELET COUNT 220 10^3/uL (150-450)
[2018-01-23 17:29] LABS: NT PRO BNP 117 pg/mL (<125)
[2018-01-23 17:39] LABS: TROPONIN I < 0.012 ng/mL
--- NOTE | 2018-01-23 18:23 | RADIOLOGY REPORT (SQ) ---
EXAM DESCRIPTION: VENOUS BILATERAL LOWER COMPLETED DATE/TIME: 01/23/2018 6:16 pm REASON FOR STUDY: leg swelling, recent preg; eval dvt COMPARISON: None. TECHNIQUE: Dynamic and static vasquez scale and color images acquired of both lower extremity venous sy stems. Selected spectral images acquired with additional compression and augmentation maneuvers. Imag es stored on PACS. LIMITATIONS: None. FINDINGS: RIGHT LEG COMMON FEMORAL AND FEMORAL: Normal phasicity, compression and augmentation. No visualized echogenic m aterial on vasquez scale. No defects on color images. POPLITEAL: Normal compression and augmentation. No visualized echogenic material on vasquez scale. No de fects on color images. CALF VESSELS: Normal compression and augmentation. No visualized echogenic material on vasquez scale. No defects on color image. GSV AND SSV: Normal compression. No visualized echogenic material on vasquez scale. No defects on color images. ANY DEEP VENOUS INSUFFICIENCY: Not evaluated. ANY EVIDENCE OF POPLITEAL CYST: No. OTHER: No other significant finding. LEFT LEG COMMON FEMORAL AND FEMORAL: Normal phasicity, compression and augmentation. No visualized echogenic m aterial on vasquez scale. No defects on color images. POPLITEAL: Normal compression and augmentation. No visualized echogenic material on vasquez scale. No de fects on color images. CALF VESSELS: Normal compression and augmentation. No visualized echogenic material on vasquez scale. No defects on color images. GSV AND SSV: Normal compression. No visualized echogenic material on vasquez scale. No defects on color images. ANY DEEP VENOUS INSUFFICIENCY: Not evaluated. ANY EVIDENCE POPLITEAL CYST: No. OTHER: No other significant finding. IMPRESSION: NO EVIDENCE DVT OR SVT IN EITHER LEG. TECHNICAL DOCUMENTATION: JOB ID: [id number] [employer]- All Rights Reserved Reading location - IP/workstation name: [email or web address]
[2018-01-23 18:40] LABS: APPEARANCE,URINE SLIGHTLY-CLOUDY; BILIRUBIN,URINE NEGATIVE (NEGATIVE); COLOR,URINE YELLOW; GLUCOSE, URINE NEGATIVE (NEGATIVE); KETONES,URINE NEGATIVE (NEGATIVE); LEUKOCYTE ESTERASE,URINE NEGATIVE (NEGATIVE); NITRITE,URINE NEGATIVE (NEGATIVE); PROTEIN,URINE NEGATIVE (NEGATIVE); UROBILINOGEN,URINE NEGATIVE mg/dL (<2.0)
[2018-01-23 19:28] VITALS: BP 128/81
--- NOTE | 2018-01-24 00:20 | EKG REPORT ---
SEVERITY:- NORMAL ECG - SINUS RHYTHM : Confirmed by: Aretha Peralta MD 24-Jan-2018 00:20:14
== END 2018-01-23 19:28 | disposition home or self-care (01) ==
LOC: ER 15:50
DX: R60.9 Edema, unspecified (principal); R53.1 Weakness; R42 Dizziness and giddiness; R51 Headache; R53.83 Other fatigue; R03.0 Elevated blood-pressure reading, without diagnosis of hypertension; Z88.0 Allergy status to penicillin; Z88.2 Allergy status to sulfonamides; Z88.6 Allergy status to analgesic agent
CPT/HCPCS: 36415; 71046; 80053; 81001; 83735; 83880; 84100; 84484; 84702; 85025; 93005; 93010; 93970; 99285

== ENCOUNTER 2018-06-15 19:27 | Emergency (ER) | payer SELFPAY ==
[2018-06-15] MEDS ORDERED: NORMAL SALINE 1000 ML 1,000 ML IV ONE (20:26)
[2018-06-15] MEDS ORDERED: ACETAMINOPHEN 325 MG TABLET PO ONE (20:26)
--- NOTE | 2018-06-15 20:28 | ER Document Report ---
ED Medical Screen (RME) - General Chief Complaint: Vaginal Bleeding Stated Complaint: BACK PAIN/ABDOMINAL PAIN Time Seen by Provider: 06/15/18 20:18 Notes: Patient is a 43-year-old female that presents to the emergency department for chief complaint of vaginal bleeding and pelvic pain. Patient reports having missed her period for 3 days, and had some spotting over the last couple days and then had significant pelvic pain and vaginal bleeding today which concerned her. ROS: Other than noted above, the 12 point review of systems was reviewed with the patient and were negative, all pertinent findings are included in the HPI. PHYSICAL EXAMINATION: Vital signs reviewed. GENERAL: Well-appearing, well-nourished and in no acute distress. HEAD: Atraumatic, normocephalic. EYES: Pupils equal round extraocular movements intact, conjunctiva are normal. ENT: Nares patent NECK: Normal range of motion CV: Heart regular rate and rhythm LUNGS: No respiratory distress Musculoskeletal: Normal range of motion NEUROLOGICAL: Normal speech PSYCH: Normal mood, normal affect. MDM: Patient seen and examined for rapid initial assessment. Vital signs reviewed. A comprehensive ED assessment and evaluation of the patient, analysis of test results and completion of the medical decision making process will be conducted by additional ED providers. *Note is created using voice recognition software and may contain spelling, syntax or grammatical errors. TRAVEL OUTSIDE OF THE [place] IN LAST 30 DAYS: No COUNTRY TRAVELED TO/FROM: [facility] - Related Data Allergies/Adverse Reactions: penicillin V potassium [From Pen-Vee K] Allergy (Intermediate, Verified 18:09) Hives Sulfa (Sulfonamide Antibiotics) Allergy (Intermediate, Verified 01/17/18 18:09) Hives ibuprofen [From Motrin] Allergy (Mild, Verified 01/17/18 18:09) Hives metronidazole [From Flagyl] Allergy (Mild, Verified 01/17/18 18:09) rash Metronidazole HCl [From Flagyl] Allergy (Mild, Verified 01/17/18 18:09) rash Penicillins Allergy (Verified 01/17/18 18:09) Past Medical History - Social History Frequency of alcohol use: None Family history: Reviewed & Not Pertinent Endocrine Medical History: Renal/ Medical History: Reports: Hx Ovarian Cysts. Denies: Hx Peritoneal Dialysis GI Medical History: Reports: Hx Gastroesophageal Reflux Disease Musculoskeltal Medical History: Reports Hx Arthritis, Reports Hx Musculoskeletal Deformity - scoliosis Psychiatric Medical History: Reports: Hx Anxiety - Immunizations Immunizations up to date: Yes Hx Diphtheria, Pertussis, Tetanus Vaccination: Yes - 2010 Doctor's Discharge - Discharge Referrals: NICK NEWSOME NP [Primary Care Provider] - Follow up as needed
[2018-06-15 21:06] LABS: ABSOLUTE BASOPHILS # (AUTO) 0.1 10^3/uL (0.0-0.2); ABSOLUTE EOSINOPHILS # (AUTO) 0.1 10^3/uL (0.0-0.6); ABSOLUTE LYMPHOCYTES (AUTO) 2.2 10^3/uL (0.5-4.7); ABSOLUTE MONOCYTES (AUTO) 0.7 10^3/uL (0.1-1.4); ABSOLUTE NEUT (AUTO) 6.8 10^3/uL (1.7-8.2); BASOPHILS % (AUTO) 0.6 % (0-2); EOSINOPHILS % (AUTO) 1.4 % (0-6); HEMATOCRIT 40.3 % (36.0-47.0); LYMPHOCYTES % (AUTO) 22.1 % (13-45); MEAN CORPUSCULAR HEMOGLOBIN 30.3 pg (27.0-33.4); MEAN CORPUSCULAR HGB CONC 34.8 g/dL (32.0-36.0); MEAN CORPUSCULAR VOLUME 87 fl (80-97); MONOCYTES % (AUTO) 6.8 % (3-13); PLATELET COUNT 256 10^3/uL (150-450); RED BLOOD COUNT 4.62 10^6/uL (3.72-5.28); SEGMENTED NEUTROPHILS % (AUTO) 69.1 % (42-78); TOTAL CELLS COUNTED % (AUTO) 100 %; WHITE BLOOD COUNT 9.9 10^3/uL (4.0-10.5)
[2018-06-15 21:27] LABS: ALANINE AMINOTRANSFERASE 16 U/L (9-52); ALBUMIN 3.7 g/dL (3.5-5.0); ALKALINE PHOSPHATASE 37 U/L (38-126); ANION GAP 9 (5-19); ASPARTATE AMINO TRANSFERASE 19 U/L (14-36); BILIRUBIN,DIRECT 0.2 mg/dL (0.0-0.4); BILIRUBIN,TOTAL 0.3 mg/dL (0.2-1.3); BLOOD UREA NITROGEN 19 mg/dL (7-20); CALCIUM 9.3 mg/dL (8.4-10.2); CARBON DIOXIDE 24 mmol/L (22-30); CHLORIDE 109 mmol/L (98-107); GLUCOSE 98 mg/dL (75-110); POTASSIUM 4.6 mmol/L (3.6-5.0); SODIUM 141.8 mmol/L (137-145); TOTAL PROTEIN 6.9 g/dL (6.3-8.2)
[2018-06-15 21:49] LABS: APPEARANCE,URINE CLEAR; BILIRUBIN,URINE NEGATIVE (NEGATIVE); COLOR,URINE YELLOW; GLUCOSE, URINE NEGATIVE (NEGATIVE); KETONES,URINE NEGATIVE (NEGATIVE); LEUKOCYTE ESTERASE,URINE TRACE (NEGATIVE); NITRITE,URINE NEGATIVE (NEGATIVE); PROTEIN,URINE NEGATIVE (NEGATIVE); URINE SPECIFIC GRAVITY 1.018; UROBILINOGEN,URINE NEGATIVE mg/dL (<2.0)
--- NOTE | 2018-06-15 22:13 | RADIOLOGY REPORT (SQ) ---
US PELVIS HISTORY: Pelvic pain. COMPARISON: None. TECHNIQUE: Grayscale, color Doppler, and spectral Doppler ultrasound images of the pelvis were obtained. FINDINGS: The uterus is retroverted and measures 10.2 x 7.2 x 8.1 cm. There is a 3.8 x 2.9 x 2.3 cm fibroid in the uterine fundus. The endometrium measures 5 mm in thickness. The right ovary measures 3.7 x 2.5 x 2.7 cm. The left ovary measures 1.9 x 1.8 x 1.9 cm. Both ovaries contain normal follicles. Normal color Doppler flow is seen in both ovaries. No free fluid is seen in the pelvis. IMPRESSION: 3.8 cm fibroid in the uterine fundus. Unremarkable ovaries.
--- NOTE | 2018-06-15 23:23 | ER Document Report ---
ED GI/ - General Chief Complaint: Vaginal Bleeding Stated Complaint: BACK PAIN/ABDOMINAL PAIN Time Seen by Provider: 06/15/18 20:18 Mode of Arrival: Ambulatory Information source: Patient Notes: Patient is a 43-year-old female who presents with chief complaint of abnormal vaginal bleeding. She states that her period was supposed to come on the , she missed it and now she started having lower abdominal cramping with vaginal bleeding. She reports that she has only gone through 1 pad today. She is concerned that she may be as she had a miscarriage several months ago. Patient denies any fever, nausea, vomiting or diarrhea. Patient denies any abnormal discharge or vaginal pain. TRAVEL OUTSIDE OF THE [place] IN LAST 30 DAYS: No COUNTRY TRAVELED TO/FROM: [employer] - Related Data Allergies/Adverse Reactions: penicillin V potassium [From Pen-Vee K] Allergy (Intermediate, Verified 18:09) Hives Sulfa (Sulfonamide Antibiotics) Allergy (Intermediate, Verified 01/17/18 18:09) Hives ibuprofen [From Motrin] Allergy (Mild, Verified 01/17/18 18:09) Hives metronidazole [From Flagyl] Allergy (Mild, Verified 01/17/18 18:09) rash Metronidazole HCl [From Flagyl] Allergy (Mild, Verified 01/17/18 18:09) rash Penicillins Allergy (Verified 01/17/18 18:09) Past Medical History - General Information source: Patient - Social History Smoking Status: Never Smoker Frequency of alcohol use: None Family History: Arthritis, CAD, CVA, DM, Hyperlipidemia, Hypertension, Thyroid Disfunction Patient has suicidal ideation: No Patient has homicidal ideation: No Endocrine Medical History: Renal/ Medical History: Reports: Hx Ovarian Cysts. Denies: Hx Peritoneal Dialysis GI Medical History: Reports: Hx Gastroesophageal Reflux Disease Musculoskeletal Medical History: Reports Hx Arthritis, Reports Hx Musculoskeletal Deformity - scoliosis Psychiatric Medical History: Reports: Hx Anxiety Surgical Hx: Negative - Immunizations Immunizations up to date: Yes Hx Diphtheria, Pertussis, Tetanus Vaccination: Yes - 2010 Review of Systems - Review of Systems Gastrointestinal: Abdominal pain Female Genitourinary: Vaginal bleeding -: Yes All other systems reviewed and negative Physical Exam - Vital signs Vitals: Pulse Ox 100 06/15/18 20:56 - Notes Notes: PHYSICAL EXAMINATION: GENERAL: Well-appearing, well-nourished and in no acute distress. HEAD: Atraumatic, normocephalic. EYES: Pupils equal round and reactive to light, extraocular movements intact, conjunctiva are normal. ENT: Nares patent, oropharynx clear without exudates. Moist mucous membranes. NECK: Normal range of motion, supple without lymphadenopathy LUNGS: Breath sounds clear to auscultation bilaterally and equal. No wheezes rales or rhonchi. HEART: Regular rate and rhythm without murmurs ABDOMEN: Soft, nontender, nondistended abdomen. No guarding, no rebound. No masses appreciated. Female : deferred Musculoskeletal: Normal range of motion, no pitting or edema. No cyanosis. NEUROLOGICAL: Cranial nerves grossly intact. Normal speech, normal gait. Normal sensory, motor exams PSYCH: Normal mood, normal affect. SKIN: Warm, Dry, normal turgor, no rashes or lesions noted. Course - Re-evaluation Re-evalutation: CBC, CMP are unremarkable. HCG is negative. Urinalysis with large blood and trace leukocyte Estrace. Transvaginal ultrasound reveals a 3.8 cm fibroid in the uterus. Ovaries appear normal. - Vital Signs Vital signs: Temp Pulse Resp BP Pulse Ox 72 18 116/77 97 06/15/18 23:45 06/15/18 23:45 06/15/18 23:45 06/15/18 23:45 - Laboratory Result Diagrams: 06/15/18 20:53 06/15/18 20:53 Laboratory results interpreted by me: 06/15/18 06/15/18 20:31 20:53 Chloride 109 H Alkaline Phosphatase 37 L Urine Blood LARGE H Ur Leukocyte Esterase TRACE H Discharge - Discharge Clinical Impression: Fibroid Condition: Stable Disposition: HOME, SELF-CARE Additional Instructions: Fibroids Fibroids are benign growths in the uterus. They can cause enlargement of the uterus, irregular bleeding, sever bleeding with periods, and abdominal pain. Anemia may result if periods are heavy. Fibroids tend to grow until menopause, then slwly shrink. If fibroids cause severe symptoms, they can be treated surgically. Call or return if vaginal bleeding or pain becomes severe. Vaginal Bleeding You are having an episode of abnormal bleeding. Causes of abnormal vaginal bleeding can include miscarriage or tubal , tumors such as cancer or benign fibroids, medication effects, or hormone imbalance. "Dysfunctional uterine bleeding" is due to hormone imbalance, and is especially common at times when the normal cycle is disturbed -- whether by recent , use of control pills or hormones, or impending menopause. If the bleeding is innocent, most commonly a short course of hormones is given to restore the uterus to normal. Sometimes, the normal menstrual cycle corrects itself naturally. Sometimes , brief hormone therapy, or even a D&C is required. Your physician will advise you. Treatment for anemia may be required if bleeding is severe. You should rest and avoid intercourse until the bleeding is controlled. Call the doctor or return for re-examination if you feel faint, have increasing pain, or have a major increase in the amount of bleeding. Your blood work and urine today were normal. The ultrasound shows that you have a fibroid. This may be the cause of your low abdominal cramping and bleeding. Please take ibuprofen 600 mg every 6 hours for pain. Schedule an appointment to follow-up with a [facility] provider. Return to the emergency department if you develop vaginal bleeding that is more than 1 pad per hour. Referrals: NICK NEWSOME NP [Primary Care Provider] - Follow up as needed
[2018-06-15 23:46] VITALS: BP 116/77
== END 2018-06-15 23:45 | disposition home or self-care (01) ==
LOC: ER 19:27
DX: D25.9 Leiomyoma of uterus, unspecified (principal); N93.9 Abnormal uterine and vaginal bleeding, unspecified; R10.30 Lower abdominal pain, unspecified; M54.9 Dorsalgia, unspecified
CPT/HCPCS: 99284; 96360; 36415; 84703; 85025; 80053; 81001; 76830; 93976; J7030

== ENCOUNTER 2018-07-28 15:12 | Emergency (ER) | payer SELFPAY ==
[2018-07-28] MEDS ORDERED: GUAIFENESIN 600 MG TABLET.SA PO ONE (16:23)
[2018-07-28] MEDS ORDERED: LORATADINE 10 MG TABLET PO ONE (16:23)
[2018-07-28] MEDS ORDERED: PSEUDOEPHEDRINE HCL 30 MG TABLET PO ONE (16:23)
[2018-07-28] MEDS ORDERED: ACETAMINOPHEN 325 MG TABLET PO ONE (16:24)
--- NOTE | 2018-07-28 16:30 | ER Document Report ---
ED Respiratory Problem - General Chief Complaint: Cough Stated Complaint: SORE THROAT Time Seen by Provider: 07/28/18 15:49 Mode of Arrival: Ambulatory Information source: Patient Notes: 43-year-old female presented to ED for complaint of cough cold congestion with discomfort in the chest from coughing for 3 days. She states the cough is worse at nighttime. She states she also gets a hoarse throat at night. She states sometimes she is breathing heavy. Patient is alert and oriented respirations regular and unlabored speaking in full sentences walking with a even steady gait while in the emergency room. She is in no acute distress at this time. She states she has not taken any kind of medications or treatments for this cough cold congestion and pain since that started 3 days ago's. She states she was worried that she might have a pneumonia or bronchitis. TRAVEL OUTSIDE OF THE [place] IN LAST 30 DAYS: No COUNTRY TRAVELED TO/FROM: [facility] Patient complains to provider of: Cough, Short of breath Onset: Other - 3 days Duration: Intermittent episodes Initiating Event: URI Quality of pain: Achy, Sharp Severity: Moderate Pain Level: 3 Chest pain/discomfort: Pain - Bilateral with cough Cough: Productive Sputum amount: Moderate Sputum color: White Sputum consistency: Thick Associated symptoms: Chest pain/discomfort, Congestion, Cough, PND, Runny nose, Sinus pain/pressure, Short of breath, Sore Throat. denies: Fever Similar symptoms previously: Yes Recently seen / treated by doctor: No - Related Data Allergies/Adverse Reactions: penicillin V potassium [From Pen-Vee K] Allergy (Intermediate, Verified 01/17/18 18:09) Hives Sulfa (Sulfonamide Antibiotics) Allergy (Intermediate, Verified 01/17/18 18:09) Hives ibuprofen [From Motrin] Allergy (Mild, Verified 01/17/18 18:09) Hives metronidazole [From Flagyl] Allergy (Mild, Verified 01/17/18 18:09) rash Metronidazole HCl [From Flagyl] Allergy (Mild, Verified 01/17/18 18:09) rash Penicillins Allergy (Verified 01/17/18 18:09) Past Medical History - General Information source: Patient - Social History Smoking Status: Never Smoker Frequency of alcohol use: None Drug Abuse: None Family History: Arthritis, CAD, CVA, DM, Hyperlipidemia, Hypertension, Thyroid Disfunction Patient has suicidal ideation: No - Past Medical History Cardiac Medical History: Reports: None Pulmonary Medical History: Reports: None EENT Medical History: Reports: None Neurological Medical History: Reports: None Endocrine Medical History: Reports: None Renal/ Medical History: Reports: Hx Ovarian Cysts Malignancy Medical History: Reports: None GI Medical History: Reports: Hx Gastroesophageal Reflux Disease Musculoskeletal Medical History: Reports Hx Arthritis, Reports Hx Musculoskeletal Deformity - scoliosis Skin Medical History: Reports None Psychiatric Medical History: Reports: Hx Anxiety Traumatic Medical History: Reports: None Infectious Medical History: Reports: None Surgical Hx: Negative Past Surgical History: Reports: None - Immunizations Immunizations up to date: Yes Hx Diphtheria, Pertussis, Tetanus Vaccination: Yes - 2010 Review of Systems - Review of Systems Constitutional: Recent illness. denies: Chills, Fever EENT: Nose congestion, Nose discharge, Sinus pressure, Sinus discharge, Throat pain Cardiovascular: No symptoms reported Respiratory: Cough, Other - Hurts to cough Gastrointestinal: Other - States sometimes she coughs until she throws up Genitourinary: No symptoms reported Female Genitourinary: No symptoms reported Musculoskeletal: No symptoms reported Skin: No symptoms reported Hematologic/Lymphatic: No symptoms reported Neurological/Psychological: No symptoms reported -: Yes All other systems reviewed and negative Physical Exam - Vital signs Vitals: Temp Pulse Resp BP Pulse Ox 98.8 F 97 16 131/83 H 98 07/28/18 15:16 07/28/18 15:16 07/28/18 15:16 07/28/18 15:16 07/28/18 15:16 Interpretation: Normal - General General appearance: Appears well, Alert - HEENT Head: Normocephalic, Atraumatic Eyes: Normal Pupils: PERRL Ears: Normal External canal: Normal Tympanic membrane: Normal Sinus: Normal Nasal: Purulent discharge, Swelling Mouth/Lips: Normal Mucous membranes: Normal Pharynx: Post nasal drainage. No: Erythema, Exudate, Tonsillar hypertrophy Neck: Normal - Respiratory Respiratory status: No respiratory distress Chest status: Nontender Breath sounds: Nonproductive cough Chest palpation: Normal - Cardiovascular Rhythm: Regular Heart sounds: Normal auscultation Murmur: No - Abdominal Inspection: Normal Distension: No distension Bowel sounds: Normal Tenderness: Nontender Organomegaly: No organomegaly - Back Back: Normal, Nontender - Extremities General upper extremity: Normal inspection, Nontender, Normal color, Normal ROM, Normal temperature General lower extremity: Normal inspection, Nontender, Normal color, Normal ROM, Normal temperature, Normal weight bearing. No: Ankit's sign - Neurological Neuro grossly intact: Yes Cognition: Normal Orientation: AAOx4 [place] Coma Scale Eye Opening: Spontaneous Walford Coma Scale Verbal: Oriented Walford Coma Scale Motor: Obeys Commands Walford Coma Scale Total: 15 Speech: Normal Motor strength normal: LUE, RUE, LLE, RLE Sensory: Normal - Psychological Associated symptoms: Normal affect, Normal mood - Skin Skin Temperature: Warm Skin Moisture: Dry Skin Color: Normal Course - Re-evaluation Re-evalutation: 07/28/18 16:32 Assessment consistent with an upper respiratory infection. Patient was given Sudafed 30 mg, Claritin 10 mg, Mucinex 600 mg, Tylenol 650 mg. These are all [id number] medications and patient was instructed on use of these medications as well as Flonase Chloraseptic spray and salt and soda solution for gargles. After performing a Medical Screening Examination, I estimate there is LOW risk for ACUTE CORONARY SYNDROME, RESPIRATORY FAILURE, SEPSIS OR MENINGITIS, thus I consider the discharge disposition reasonable. I have reevaluated this patient multiple times and no significant life threatening changes are noted. The patient and I have discussed the diagnosis and risks, and we agree with discharging home with close follow-up. We also discussed returning to the Emergency Department immediately if new or worsening symptoms occur. We have discussed the symptoms which are most concerning (e.g., changing or worsening pain, trouble swallowing or breathing, neck stiffness, fever) that necessitate immediate return. - Vital Signs Vital signs: Temp Pulse Resp BP Pulse Ox 98.2 F 71 16 123/71 100 07/28/18 16:51 07/28/18 16:51 07/28/18 16:51 07/28/18 16:51 07/28/18 16:51 Discharge - Discharge Clinical Impression: URI (upper respiratory infection) Qualifiers: URI type: unspecified URI Qualified Code(s): J06.9 - Acute upper respiratory infection, unspecified Condition: Stable Disposition: HOME, SELF-CARE Additional Instructions: UPPER RESPIRATORY ILLNESS: You have a viral infection of the respiratory passages -- a "cold." This common infection causes nasal congestion, drainage, and often sore throat and cough. It is highly contagious. The disease usually lasts about 10 to 14 days. There is no "cure" for the viral infection -- it must run its course. If there is a complication, such as bacterial infection in the nose, sinuses, middle ear, or bronchial tubes, antibiotics may be required. The antibiotics won't affect the virus. Drink plenty of fluids. A humidifier may help. An expectorant medication or decongestant may make you more comfortable. Use acetaminophen or ibuprofen for fever or aches. See the doctor if fever persists over two days, if there is any significant worsening of your symptoms, or if you simply fail to improve as expected. DECONGESTANT MEDICATION: A decongestant medicine has been adjusted. Often this medicine is combined in the same tablet with an antihistamine or expectorant. This type of medicine is helpful in treating a bad cold or sinus condition, as well as in treatment of the nasal congestion of hay fever. It is not of much benefit for lung infections. Decongestant medicines are related to stimulants. They can cause an increase in blood pressure and heart rate. Persons with heart disease and high blood pressure should not take decongestants without discussing this with the physician. If you develop palpitations, chest pain, headache, or tremors, stop the medicine and consult your physician. COUGH-SUPPRESSANT & EXPECTORANT MEDICATION: You are to use a cough medication as needed for relief of symptoms. This medicine is a combination of an expectorant (to make the mucous thinner and more easily "coughed up") and a cough suppressant (to reduce the frequency of coughing). The cough-suppressant medicine is related to narcotics. You may experience mild nausea and sleepiness. Some patients who are very sensitive to narcotics may have stomach pain from this medicine. Taking the medicine with food reduces these side effects. Do not drive or work with machinery until you know how this medicine affects you. The expectorant should have no side effects. Iodine-containing expectorants (such as organidin) should not be taken by persons with active thyroid disease unless approved by your doctor. Call the doctor if you develop shortness of breath, hives, rash, itching, lightheadedness, or severe nausea and vomiting. USE OF ACETAMINOPHEN (Tylenol): Acetaminophen may be taken for pain relief or fever control. It's much safer than aspirin, offering a wider range of "safe" dosages. It is safe during . Some brand names are Tylenol, Panadol, Datril, Anacin 3, Tempra, and Liquiprin. Acetaminophen can be repeated every four hours. The following are maximum recommended dosages: >89 pounds or adults 650 mg to 900 mg Acetaminophen can be repeated every four hours. Maximum dose not to exceed 4000 mg a day. You were treated with Claritin 10 mg, Sudafed 30 mg, Mucinex 600 mg, and Tylenol 650 mg in the emergency room for your cough cold congestion and sore throat. These are all [id number] medications that she can get at the pharmacy. You can also use Flonase which is [id number]. Chloraseptic spray would help with your sore throat. He can also use salt and soda solution gargles which will help to clear the mucus from the back to your throat. Salt and soda solution 1 quart of water 1 tablespoon of salt 1 teaspoon of baking soda Mixed 3 ingredients together and boil for 1 minute Placed in a covered quart jar Use 1/2 ounce of cold solution to gargle 3 times a day FOLLOW-UP CARE: If you have been referred to a physician for follow-up care, call the physicians office for an appointment as you were instructed or within the next two days. If you experience worsening or a significant change in your symptoms, notify the physician immediately or return to the Emergency Department at any ti me for re-evaluation. Forms: Elevated Blood Pressure, Return to Work Referrals: NICK NEWSOME NP [Primary Care Provider] - Follow up in 3-5 days
[2018-07-28 16:54] VITALS: BP 123/71
== END 2018-07-28 16:51 | disposition home or self-care (01) ==
LOC: ER 15:12
DX: J06.9 Acute upper respiratory infection, unspecified (principal); R05 Cough; R06.02 Shortness of breath; R07.9 Chest pain, unspecified; R09.82 Postnasal drip; R09.81 Nasal congestion; J34.89 Other specified disorders of nose and nasal sinuses; J02.9 Acute pharyngitis, unspecified; Z88.0 Allergy status to penicillin; Z88.2 Allergy status to sulfonamides; Z88.6 Allergy status to analgesic agent; Z88.1 Allergy status to other antibiotic agents
CPT/HCPCS: 99283

== ENCOUNTER 2018-08-01 09:43 | Emergency (ER) | payer BC ==
[2018-08-01] MEDS ORDERED: BENZONATATE 100 MG CAPSULE PO ONE (10:38)
[2018-08-01] MEDS ORDERED: ACETAMINOPHEN 325 MG TABLET PO ONE (10:44)
--- NOTE | 2018-08-01 10:47 | ER Document Report ---
ED Respiratory Problem - General Chief Complaint: Congestion Stated Complaint: COLD Time Seen by Provider: 08/01/18 10:22 Mode of Arrival: Ambulatory Information source: Patient Notes: 43-year-old female presented to ED for cough cold congestion times a week. She states she was seen here several days ago and was started on some cough and cold medicine. She states that the cough is worse in his stomach and her chest hurts to cough. She also has a sore throat. Patient is alert oriented respirations regular and unlabored speaking in full sentences. Patient walks with a even steady gait. TRAVEL OUTSIDE OF THE [place] IN LAST 30 DAYS: No COUNTRY TRAVELED TO/FROM: [facility] Patient complains to provider of: Cough, Short of breath Onset: Last week Duration: Continuous Initiating Event: URI Quality of pain: Achy Severity: Severe Pain Level: 5 Chest pain/discomfort: Pain - With cough Cough: Nonproductive Sputum amount: None Associated symptoms: Chest pain/discomfort, Congestion, Cough, PND, Runny nose, Sinus pain/pressure, Sore Throat Similar symptoms previously: Yes Recently seen / treated by doctor: Yes - Related Data Allergies/Adverse Reactions: penicillin V potassium [From Pen-Vee K] Allergy (Intermediate, Verified 08/01/18 09:43) Hives Sulfa (Sulfonamide Antibiotics) Allergy (Intermediate, Verified 08/01/18 09:43) Hives ibuprofen [From Motrin] Allergy (Mild, Verified 08/01/18 09:43) Hives metronidazole [From Flagyl] Allergy (Mild, Verified 08/01/18 09:43) rash Metronidazole HCl [From Flagyl] Allergy (Mild, Verified 08/01/18 09:43) rash Penicillins Allergy (Verified 08/01/18 09:43) Past Medical History - General Information source: Patient - Social History Smoking Status: Never Smoker Cigarette use (# per day): No Chew tobacco use (# tins/day): No Smoking Education Provided: No Frequency of alcohol use: None Drug Abuse: None Occupation: Home care Family History: Arthritis, CAD, CVA, DM, Hyperlipidemia, Hypertension, Thyroid Disfunction Patient has suicidal ideation: No Patient has homicidal ideation: No - Past Medical History Cardiac Medical History: Reports: None Pulmonary Medical History: Reports: None EENT Medical History: Reports: None Neurological Medical History: Reports: None Endocrine Medical History: Reports: None Renal/ Medical History: Reports: Hx Ovarian Cysts Malignancy Medical History: Reports: None GI Medical History: Reports: Hx Gastroesophageal Reflux Disease Musculoskeletal Medical History: Reports Hx Arthritis, Reports Hx Musculoskeletal Deformity - scoliosis Skin Medical History: Reports None Psychiatric Medical History: Reports: Hx Anxiety Traumatic Medical History: Reports: None Infectious Medical History: Reports: None Surgical Hx: Negative Past Surgical History: Reports: None - Immunizations Immunizations up to date: Yes Hx Diphtheria, Pertussis, Tetanus Vaccination: Yes - 2010 Review of Systems - Review of Systems Constitutional: Chills, Recent illness EENT: Nose congestion, Nose discharge, Sinus pressure, Sinus discharge, Throat pain Respiratory: Cough, Other - States she has pain with cough, cough is much worse at night when she lays down Physical Exam - Vital signs Vitals: Temp Pulse Resp BP Pulse Ox 99.2 F 93 20 133/80 H 96 08/01/18 09:47 08/01/18 09:47 08/01/18 09:47 08/01/18 09:47 08/01/18 09:47 Interpretation: Normal - General General appearance: Appears well, Alert - HEENT Head: Normocephalic, Atraumatic Eyes: Normal Pupils: PERRL Ears: Normal External canal: Normal Tympanic membrane: Normal Sinus: Normal Nasal: Purulent discharge, Swelling Mouth/Lips: Normal Pharynx: Post nasal drainage. No: Erythema, Exudate, Tonsillar hypertrophy Neck: Normal - Respiratory Respiratory status: No respiratory distress Chest status: Nontender Breath sounds: Nonproductive cough. No: Productive cough, Rales, Rhonchi, Stridor, Wheezing Chest palpation: Normal - Cardiovascular Rhythm: Regular Heart sounds: Normal auscultation Murmur: No - Abdominal Inspection: Normal Distension: No distension Bowel sounds: Normal Tenderness: Nontender Organomegaly: No organomegaly - Back Back: Normal, Nontender - Extremities General upper extremity: Normal inspection, Nontender, Normal color, Normal ROM, Normal temperature General lower extremity: Normal inspection, Nontender, Normal color, Normal ROM, Normal temperature, Normal weight bearing. No: Ankit's sign - Neurological Neuro grossly intact: Yes Cognition: Normal Orientation: AAOx4 [place] Coma Scale Eye Opening: Spontaneous [place] Coma Scale Verbal: Oriented [place] Coma Scale Motor: Obeys Commands [place] Coma Scale Total: 15 Speech: Normal Motor strength normal: LUE, RUE, LLE, RLE Sensory: Normal - Psychological Associated symptoms: Normal affect, Normal mood - Skin Skin Temperature: Warm Skin Moisture: Dry Skin Color: Normal Course - Re-evaluation Re-evalutation: 08/01/18 19:22 After performing a Medical Screening Examination, I estimate there is LOW risk for ACUTE CORONARY SYNDROME, RESPIRATORY FAILURE, SEPSIS OR MENINGITIS, thus I consider the discharge disposition reasonable. I have reevaluated this patient multiple times and no significant life threatening changes are noted. The patient and I have discussed the diagnosis and risks, and we agree with discharging home with close follow-up. We also discussed returning to the Emergency Department immediately if new or worsening symptoms occur. We have discussed the symptoms which are most concerning (e.g., changing or worsening pain, trouble swallowing or breathing, neck stiffness, fever) that necessitate immediate return. - Vital Signs Vital signs: Temp Pulse Resp BP Pulse Ox 99 F 72 16 126/77 H 99 08/01/18 12:48 08/01/18 12:48 08/01/18 12:48 08/01/18 12:48 08/01/18 12:48 - Diagnostic Test Radiology reviewed: Image reviewed, Reports reviewed Discharge - Discharge Clinical Impression: URI (upper respiratory infection) Qualifiers: URI type: unspecified URI Qualified Code(s): J06.9 - Acute upper respiratory infection, unspecified Condition: Stable Disposition: HOME, SELF-CARE Additional Instructions: UPPER RESPIRATORY ILLNESS: You have a viral infection of the respiratory passages -- a "cold." This common infection causes nasal congestion, drainage, and often sore throat and cough. It is highly contagious. The disease usually lasts about 10 to 14 days. There is no "cure" for the viral infection -- it must run its course. If there is a complication, such as bacterial infection in the nose, sinuses, middle ear, or bronchial tubes, antibiotics may be required. The antibiotics won't affect the virus. Drink plenty of fluids. A humidifier may help. An expectorant medication or decongestant may make you more comfortable. Use acetaminophen or ibuprofen for fever or aches. See the doctor if fever persists over two days, if there is any significant worsening of your symptoms, or if you simply fail to improve as expected. COUGH-SUPPRESSANT & EXPECTORANT MEDICATION: You are to use a cough medication as needed for relief of symptoms. This medicine is a combination of an expectorant (to make the mucous thinner and more easily "coughed up") and a cough suppressant (to reduce the frequency of coughing). The cough-suppressant medicine is related to narcotics. You may experience mild nausea and sleepiness. Some patients who are very sensitive to narcotics may have stomach pain from this medicine. Taking the medicine with food reduces these side effects. Do not drive or work with machinery until you know how this medicine affects you. The expectorant should have no side effects. Iodine-containing expectorants (such as organidin) should not be taken by persons with active thyroid disease unless approved by your doctor. Call the doctor if you develop shortness of breath, hives, rash, itching, lightheadedness, or severe nausea and vomiting. USE OF ACETAMINOPHEN (Tylenol): Acetaminophen may be taken for pain relief or fever control. It's much safer than aspirin, offering a wider range of "safe" dosages. It is safe during . Some brand names are Tylenol, Panadol, Datril, Anacin 3, Tempra, and Liquiprin. Acetaminophen can be repeated every four hours. The following are maximum recommended dosages: >89 pounds or adults 650 mg to 900 mg Acetaminophen can be repeated every four hours. Maximum dose not to exceed 4000 mg a day. FOLLOW-UP CARE: If you have been referred to a physician for follow-up care, call the physicians office for an appointment as you were instructed or within the next two days. If you experience worsening or a significant change in your symptoms, notify the physician immediately or return to the Emergency Department at any time for re-evaluation. Prescriptions: Benzonatate [Tessalon Perle 100 mg Capsule] 100 mg PO Q8HP PRN #20 cap PRN Reason: Forms: Elevated Blood Pressure, Return to Work Referrals: NICK NEWSOME NP [Primary Care Provider] - Follow up in 3-5 days
--- NOTE | 2018-08-01 11:37 | RADIOLOGY REPORT (SQ) ---
EXAM DESCRIPTION: CHEST 2 VIEWS COMPLETED DATE/TIME: 08/01/2018 11:23 am REASON FOR STUDY: cough congestion COMPARISON: 01/23/2018. EXAM PARAMETERS: NUMBER OF VIEWS: two views TECHNIQUE: Digital Frontal and Lateral radiographic views of the chest acquired. RADIATION DOSE: NA LIMITATIONS: none FINDINGS: LUNGS AND PLEURA: No acute infiltrates or effusions. MEDIASTINUM AND HILAR STRUCTURES: No masses or contour abnormalities. HEART AND VASCULAR STRUCTURES: The heart is normal with normal pulmonary vasculature. BONES: No acute findings. HARDWARE: None in the chest. OTHER: No other significant finding. IMPRESSION: NO ACUTE DISEASE. TECHNICAL DOCUMENTATION: JOB ID: [id number] SC-69 2010 [employer]- All Rights Reserved Reading location - IP/workstation name: [email or web address]
[2018-08-01 12:49] VITALS: BP 126/77
== END 2018-08-01 19:00 | disposition home or self-care (01) ==
LOC: ER 09:43
DX: J06.9 Acute upper respiratory infection, unspecified (principal); Z88.0 Allergy status to penicillin; Z88.2 Allergy status to sulfonamides; Z88.1 Allergy status to other antibiotic agents; Z88.6 Allergy status to analgesic agent
CPT/HCPCS: 71046; 99283

== ENCOUNTER 2018-08-13 18:57 | Emergency (ER) | payer BC ==
[2018-08-13] MEDS ORDERED: GUAIFENESIN 600 MG TABLET.SA PO ONE (20:51)
[2018-08-13] MEDS ORDERED: IPRATROPIUM/ALBUTEROL 0.5-2.5 MG/3 ML AMPUL NEB ONE (20:51)
--- NOTE | 2018-08-13 20:53 | ER Document Report ---
ED Medical Screen (RME) - General Chief Complaint: Nose Bleed Stated Complaint: COUGH,CONGESTION,NOSE BLEEDING Time Seen by Provider: 08/13/18 20:46 Mode of Arrival: Ambulatory Information source: Patient Notes: 43-year-old female no significant medical history presents to the emergency room with cough, congestion, nosebleeds. Patient states that the left nare was bleeding. She denies fever. She has a continual cough in the [place] TRAVEL OUTSIDE OF THE [place] IN LAST 30 DAYS: No COUNTRY TRAVELED TO/FROM: [facility] - Related Data Allergies/Adverse Reactions: penicillin V potassium [From Pen-Vee K] Allergy (Intermediate, Verified 08/13/18 18:59) Hives Sulfa (Sulfonamide Antibiotics) Allergy (Intermediate, Verified 08/13/18 18:59) Hives ibuprofen [From Motrin] Allergy (Mild, Verified 08/13/18 18:59) Hives metronidazole [From Flagyl] Allergy (Mild, Verified 08/13/18 18:59) rash Metronidazole HCl [From Flagyl] Allergy (Mild, Verified 08/13/18 18:59) rash Penicillins Allergy (Verified 08/13/18 18:59) Past Medical History - Social History Frequency of alcohol use: None Drug Abuse: None Family history: Reviewed & Not Pertinent Endocrine Medical History: Renal/ Medical History: Reports: Hx Ovarian Cysts. Denies: Hx Peritoneal Dialysis GI Medical History: Reports: Hx Gastroesophageal Reflux Disease Musculoskeltal Medical History: Reports Hx Arthritis, Reports Hx Musculoskeletal Deformity - scoliosis Psychiatric Medical History: Reports: Hx Anxiety, Hx Depression - anxiety - Immunizations Immunizations up to date: Yes Hx Diphtheria, Pertussis, Tetanus Vaccination: Yes - 2010 Physical Exam - Vital signs Vitals: Temp Pulse Resp BP Pulse Ox 98.0 F 86 16 138/82 H 100 08/13/18 19:06 08/13/18 19:06 08/13/18 19:06 08/13/18 19:06 08/13/18 19:06 Course - Vital Signs Vital signs: Temp Pulse Resp BP Pulse Ox 98.0 F 86 16 138/82 H 100 08/13/18 19:06 08/13/18 19:06 08/13/18 19:06 08/13/18 19:06 08/13/18 19:06 Doctor's Discharge - Discharge Referrals: NICK NEWSOME PREMIUM REPRESENTATIVE [Primary Care Provider] - Follow up as needed
--- NOTE | 2018-08-13 21:29 | RADIOLOGY REPORT (SQ) ---
XR CHEST 2 VIEWS HISTORY: Cough. COMPARISON: 05/12/2017 FINDINGS: The heart size is normal. The lungs are clear. No pleural effusions or pneumothorax. No acute bony findings. IMPRESSION: No acute cardiopulmonary abnormality.
--- NOTE | 2018-08-13 21:44 | ER Document Report ---
HPI - HPI Time Seen by Provider: 08/13/18 20:46 Pain Level: 5 Notes: Patient is a 43-year-old female with no significant past medical history who presents to the emergency department complaining of nasal congestion and discharge, occasional nosebleed, left sinus pain, sinus headache, dry nonproductive cough over the last 3 weeks. Patient has been treating with conservative measures with no relief. She still able to eat and drink without difficulties. She is urinating normally and having normal bowel movements. No other concerns or complaints. Denies any headache, fever, neck pain, chest pain, palpitations, syncope, shortness of breath, wheeze, dyspnea, abdominal pain, nausea/vomiting/diarrhea, urinary retention, dysuria, hematuria, or rash. - ROS Systems Reviewed and Negative: Yes All other systems reviewed and negative - REPRODUCTIVE Reproductive: DENIES: : - DERM Skin Color: Normal Past Medical History - General Information source: Patient - Social History Smoking Status: Never Smoker Frequency of alcohol use: None Drug Abuse: None Family History: Arthritis, CAD, CVA, DM, Hyperlipidemia, Hypertension, Thyroid Disfunction Patient has suicidal ideation: No Patient has homicidal ideation: No Endocrine Medical History: Renal/ Medical History: Reports: Hx Ovarian Cysts. Denies: Hx Peritoneal Dialysis GI Medical History: Reports: Hx Gastroesophageal Reflux Disease Musculoskeletal Medical History: Reports Hx Arthritis, Reports Hx Musculoskeletal Deformity - scoliosis Psychiatric Medical History: Reports: Hx Anxiety, Hx Depression - anxiety - Immunizations Immunizations up to date: Yes Hx Diphtheria, Pertussis, Tetanus Vaccination: Yes - 2010 Vertical Provider Document - CONSTITUTIONAL Agree With Documented VS: Yes Notes: PHYSICAL EXAMINATION: GENERAL: Well-appearing, well-nourished and in no acute distress. A&Ox4. Answ ers questions appropriately. Moves comfortably w/o notable distress HEAD: Atraumatic, normocephalic. EYES: Pupils equal round and reactive to light, extraocular movements intact, sclera anicteric, conjunctiva are normal. ENT: EAC clear b/l. TM's intact b/l without erythema, fluid, or perforation. Nares patent and with yellow discharge. oropharynx no erythema without exudates. No tonsilar hypertrophy without erythema or exudate. No palatine shift. Uvula midline. No tongue protrusion. No drooling, hoarseness, or airway compromise. Moist mucous membranes. + left maxillary sinus tenderness. NECK: Normal range of motion, supple without lymphadenopathy. No rigidity/meningismus. LUNGS: Breath sounds clear to auscultation bilaterally and equal. No wheezes rales or rhonchi. No retractions HEART: Regular rate and rhythm without murmurs, rubs, gallops. ABDOMEN: Soft, nontender, nondistended abdomen. No guarding, no rebound. No masses appreciated. Normal bowel sounds present. No CVA tenderness bilaterally. No hepatosplenomegaly. NEUROLOGICAL: Normal speech, normal gait. Normal sensory, motor exams PSYCH: Normal mood, normal affect. SKIN: Warm, Dry, normal turgor, no rashes or lesions noted. - INFECTION CONTROL TRAVEL OUTSIDE OF THE [place] IN LAST 30 DAYS: No COUNTRY TRAVELED TO/FROM: [facility] Course - Re-evaluation Re-evalutation: 08/13/18 21:40 Patient is an afebrile, well-hydrated, 43-year-old female who presents to the emergency department with an acute URI, I do suspect viral. Vitals are acceptable without any significant tachycardia, tachypnea, or hypoxia. PE is otherwise unremarkable. Patient did have a breathing treatment prior to my evaluation and states that that did help with her cough as well. Chest x-ray was otherwise unremarkable. No labs or imaging otherwise warranted. Patient is nontoxic-appearing and is tolerating p.o. without difficulty. Low suspicion for any sepsis, meningitis, severe dehydration, respiratory compromise, or other systemic emergent condition at this time. Pt is aware that condition can change from initial presentation and she needs to monitor symptoms closely and seek medical attention with any acute changes. I will send her home with a pocket prescription for doxycycline this patient is requesting an antibiotic and I did review picture versus viral illness with this patient. I will also send her home with a prescription for albuterol inhaler. Afrin nose spray dispensed today. Patient to follow-up with her family doctor in 2-3 days. Return to the ED with any other worsening/concerning symptoms as reviewed. Patient is in agreement. - Vital Signs Vital signs: Temp Pulse Resp BP Pulse Ox 98.0 F 86 16 138/82 H 100 08/13/18 19:06 08/13/18 19:06 08/13/18 19:06 08/13/18 19:06 08/13/18 19:06 Discharge - Discharge Clinical Impression: Acute URI, Cough Acute sinusitis Qualifiers: Sinusitis location: maxillary Recurrence: non-recurrent Qualified Code(s): J01.00 - Acute maxillary sinusitis, unspecified Condition: Stable Disposition: HOME, SELF-CARE Instructions: Upper Respiratory Illness ([facility]) Additional Instructions: Maintain adequate fluid intake Take meds as directed tylenol/ibuprofen as needed over the counter cold medication as needed for symptoms Humidified air may help Wash your hands regularly Wear a mask when coughing F/u: with your PCM in 3-5 days for a recheck Return to the ED with any fever, worsening pain, chest pain, palpitations, syncope, worsening POZO, neck pain/stiffness, shortness of breath, wheezing, drooling, trouble swallowing/breathing, abdominal pain, n/v/d, rash, or worsening/concerning symptoms otherwise. Prescriptions: Albuterol Sulfate [Proair HFA Inhalation Aerosol 8.5 gm MDI] 2 puff IH Q4H PRN #1 mdi PRN Reason: Doxycycline Hyclate 100 mg PO BID #20 capsule Forms: Elevated Blood Pressure Referrals: NICK NEWSOME NP [Primary Care Provider] - Follow up as needed
[2018-08-13 22:04] LABS: APPEARANCE,URINE CLEAR; BILIRUBIN,URINE NEGATIVE (NEGATIVE); COLOR,URINE YELLOW; GLUCOSE, URINE NEGATIVE (NEGATIVE); KETONES,URINE NEGATIVE (NEGATIVE); LEUKOCYTE ESTERASE,URINE NEGATIVE (NEGATIVE); NITRITE,URINE NEGATIVE (NEGATIVE); PROTEIN,URINE NEGATIVE (NEGATIVE); URINE SPECIFIC GRAVITY 1.021; UROBILINOGEN,URINE NEGATIVE mg/dL (<2.0)
[2018-08-13] MEDS ORDERED: OXYMETAZOLINE HCL 0.05% NASAL SPRAY 15 ML BOTTLE NASL ONE (22:07)
[2018-08-13 22:20] VITALS: BP 125/74
== END 2018-08-13 22:20 | disposition home or self-care (01) ==
LOC: ER 18:57
DX: J06.9 Acute upper respiratory infection, unspecified (principal); J01.00 Acute maxillary sinusitis, unspecified; R09.81 Nasal congestion; R51 Headache; K21.9 Gastro-esophageal reflux disease without esophagitis
CPT/HCPCS: 94640; 81001; 99283; 71046; J3490; J7620

== ENCOUNTER 2018-10-06 08:05 | Emergency (ER) | payer BC ==
[2018-10-06 08:10] VITALS: BP 125/65
--- NOTE | 2018-10-06 09:08 | ER Document Report ---
HPI - HPI Time Seen by Provider: 10/06/18 09:06 Onset: This morning Onset/Duration: Sudden Severity: None Pain Level: Denies Associated Symptoms: None Notes: Reports green exudates from right eye. No pain. Patient has been around small children who also had pinkeye. tetanus is up-to-date. No [id number] medications tried. Denies any blurred vision, double vision, loss of vision, fever chills, chest pain or shortness of breath - REPRODUCTIVE Reproductive: DENIES: : Past Medical History - General Information source: Patient - Social History Smoking Status: Unknown if Ever Smoked Family History: Arthritis, CAD, CVA, DM, Hyperlipidemia, Hypertension, Thyroid Disfunction Endocrine Medical History: Renal/ Medical History: Reports: Hx Ovarian Cysts. Denies: Hx Peritoneal Dialysis GI Medical History: Reports: Hx Gastroesophageal Reflux Disease Musculoskeletal Medical History: Reports Hx Arthritis, Reports Hx Musculoskeletal Deformity - scoliosis Psychiatric Medical History: Reports: Hx Anxiety, Hx Depression - anxiety - Immunizations Immunizations up to date: Yes Hx Diphtheria, Pertussis, Tetanus Vaccination: Yes - 2010 Vertical Provider Document - CONSTITUTIONAL Agree With Documented VS: Yes Notes: PHYSICAL EXAMINATION: GENERAL: Well-appearing, well-nourished and in no acute distress. HEAD: Atraumatic, normocephalic. EYES: Pupils equal round and reactive to light, extraocular movements intact, conjunctivae injected with green exudate at lacrimal grand. Left conjunctiva conjunctiva normal. ENT: Nares patent, oropharynx clear without exudates. Moist mucous membranes. NECK: Normal range of motion, supple without lymphadenopathy LUNGS: Breath sounds clear to auscultation bilaterally and equal. No wheezes rales or rhonchi. HEART: Regular rate and rhythm without murmurs ABDOMEN: Soft, nontender, nondistended abdomen. No guarding, no rebound. No masses appreciated. Female : deferred Musculoskeletal: Normal range of motion, no pitting or edema. No cyanosis. NEUROLOGICAL: Cranial nerves grossly intact. Normal speech, normal gait. Normal sensory, motor exams PSYCH: Normal mood, normal affect. SKIN: Warm, Dry, normal turgor, no rashes or lesions noted. - INFECTION CONTROL TRAVEL OUTSIDE OF THE [place] IN LAST 30 DAYS: No COUNTRY TRAVELED TO/FROM: [facility] Course - Re-evaluation Re-evalutation: 10/06/18 09:20 Vitals stable, afebrile, in no distress. Clinical examination shows patient does have bacterial conjunctivitis without any visual changes, PERRLA, full emboli. Discussed with patient that she is recently been around small children, advised that she needs to apply warm compress 20 minutes on 20 minutes off several times a day, take [id number] ibuprofen and Tylenol as needed for any pain, use eyedrops as directed. If symptoms persist past 24 hours to follow-up with an medical coding specialist as well as primary care provider. After performing a Medical Screening Examination, I estimate there is LOW risk for a RETAINED CORNEAL or LID FOREIGN BODY, DEEP SPACE INFECTION (e.g., ORBITAL CELLULITIS OR ABSCESS), ACUTE GLAUCOMA, PENETRATING GLOBE INJURY, RETINAL DETACHMENT, or MENINGITIS thus I consider the discharge disposition reasonable. I have reevaluated this patient multiple times and no significant life threatening changes are noted. Also, there is no evidence or peritonitis, sepsis, or toxicity. The patient and I have discussed the diagnosis and risks, and we agree with discharging home with outpatient follow-up with the understanding that symptoms and presentations can change. We also discussed returning to the Emergency Department immediately if new or worsening symptoms occur. We have discussed the symptoms which are most concerning (e.g., changing or worsening pain, vision changes, neck stiffness or fever) that necessitate immediate return. - Vital Signs Vital signs: Temp Pulse Resp BP Pulse Ox 98.1 F 78 19 125/65 100 10/06/18 08:08 10/06/18 08:08 10/06/18 08:08 10/06/18 08:08 10/06/18 08:08 Discharge - Discharge Clinical Impression: Bacterial conjunctivitis of right eye Condition: Stable Disposition: HOME, SELF-CARE Instructions: Conjunctivitis ([facility]), Eyedrop Use ([facility]), Antibiotic Therapy ([facility]) Additional Instructions: Conjunctivitis You have an infection in your eye, commonly known as "pink eye." Conjunctivitis causes redness, mild discomfort, itching, and mattering on the eyelids. It is very contagious, so you must be careful to wash your hands after touching your face so you don't pass the infection on to others. Conjunctivitis is caused by both viruses and bacteria. It usually responds quickly to treatment with antibiotic drops. These should be placed in the eye as prescribed (usually every three to four hours while you're awake). If you wear contact lenses, don't put them in your eyes until the infection is cleared and you are no longer using the drops (unless your doctor advises you otherwise). Should you develop increasing eye pain, severe swelling, decreased vision, or fail to improve as expected, please return for re-examination. Return immediately for any new or worsening symptoms. Follow up with primary care provider, call tomorrow to make followup appointment. Prescriptions: Polymyxin B Sulfate/Tmp [Polytrim Oph Soln 10 ml] 1 drop OP ASDIR PRN #1 bottle PRN Reason: Forms: Return to Work Referrals: NICK NEWSOME NP [Primary Care Provider] - Follow up as needed
== END 2018-10-06 09:25 | disposition home or self-care (01) ==
LOC: ER 08:05
DX: H10.021 Other mucopurulent conjunctivitis, right eye (principal); H57.11 Ocular pain, right eye
CPT/HCPCS: 99282

== ENCOUNTER 2018-10-15 02:56 | Emergency (ER) | payer BC ==
[2018-10-15] MEDS ORDERED: AZITHROMYCIN 250 MG TABLET PO ONE (03:19)
[2018-10-15] MEDS ORDERED: TETRACAINE HCL 0.5% OPH SOLN 4 ML OS ONE (03:20)
[2018-10-15] MEDS ORDERED: ACETAMINOPHEN 325 MG TABLET PO ONE (03:21)
--- NOTE | 2018-10-15 03:23 | ER Document Report ---
ED General - General Chief Complaint: Ear Pain Stated Complaint: SORE THROAT Time Seen by Provider: 10/15/18 03:14 Primary Care Provider: NICK NEWSOME NP [Primary Care Provider] - Follow up in 3-5 days Notes: Patient is a 43-year-old female that presents to the emergency department for chief complaint of left ear pain. Patient states that this started last night, where she started having pressure in her left ear, to the point where it got severe she describes it as an 8 out of 10 at this time. She denies any associated fever, but has had cough and sore throat and congestion over the last few days. Denies any sick contacts that she is aware of. She does have a history of seasonal allergies, and thinks that they are getting worse particularly with having runny nose and congestion. She denies any other complaints at this time. Denies any chest pain, shortness of breath, nausea, vomiting or diarrhea. Past Medical History: Seasonal allergies Past Surgical History: Denies surgical history Social History: Denies tobacco, alcohol or drug use. Family History: Reviewed and noncontributory for presenting illness Allergies: Reviewed, see documented allergy list. REVIEW OF SYSTEMS: Other than noted above, the 12 point review of systems was reviewed with the patient and were negative, all pertinent findings are included in the HPI. PHYSICAL EXAMINATION: Vital signs reviewed, nursing noted reviewed. GENERAL: Well-appearing, well-nourished and in no acute distress. Patient does sound congested on exam. HEAD: Atraumatic, normocephalic. EYES: Eyes appear normal, extraocular movements intact, sclera anicteric, conjunctiva are normal. ENT: Mild bilateral nasal turbinate injection, oropharynx clear without exudates. Moist mucous membranes. The left TM appears erythematous and bulging, the right TM appears normal on exam. NECK: Normal range of motion, supple without lymphadenopathy LUNGS: Breath sounds clear to auscultation bilaterally and equal. No wheezes rales or rhonchi. HEART: Regular rate and rhythm without murmurs ABDOMEN: Soft, nontender, normoactive bowel sounds. No rebound, guarding, or rigidity. No masses appreciated. EXTREMITIES: Nontender, good range of motion, no pitting or edema. NEUROLOGICAL: No focal neurological deficits. Moves all extremities spontaneously Motor and sensory grossly intact on exam. PSYCH: Normal mood, normal affect. SKIN: Warm, Dry, normal turgor, no rashes or lesions noted on exposed skin TRAVEL OUTSIDE OF THE [place] IN LAST 30 DAYS: No COUNTRY TRAVELED TO/FROM: [facility] - Related Data Allergies/Adverse Reactions: penicillin V potassium [From Pen-Vee K] Allergy (Intermediate, Verified 10/06/18 08:06) Hives Sulfa (Sulfonamide Antibiotics) Allergy (Intermediate, Verified 10/06/18 08:06) Hives ibuprofen [From Motrin] Allergy (Mild, Verified 10/06/18 08:06) Hives metronidazole [From Flagyl] Allergy (Mild, Verified 10/06/18 08:06) rash Metronidazole HCl [From Flagyl] Allergy (Mild, Verified 10/06/18 08:06) rash Penicillins Allergy (Verified 10/06/18 08:06) Past Medical History - Social History Smoking Status: Never Smoker Family History: Arthritis, CAD, CVA, DM, Hyperlipidemia, Hypertension, Thyroid Disfunction Endocrine Medical History: Renal/ Medical History: Reports: Hx Ovarian Cysts. Denies: Hx Peritoneal Dialysis GI Medical History: Reports: Hx Gastroesophageal Reflux Disease Musculoskeletal Medical History: Reports Hx Arthritis, Reports Hx Musculoskeletal Deformity - scoliosis Psychiatric Medical History: Reports: Hx Anxiety, Hx Depression - anxiety - Immunizations Immunizations up to date: Yes Hx Diphtheria, Pertussis, Tetanus Vaccination: Yes - 2010 Physical Exam - Vital signs Vitals: Temp Pulse Resp BP Pulse Ox 97.9 F 84 16 132/74 H 98 10/15/18 02:57 10/15/18 02:57 10/15/18 02:57 10/15/18 02:57 10/15/18 02:57 Course - Re-evaluation Re-evalutation: Patient seen and examined vital signs reviewed. Patient was evaluated and treated as appropriate for the patient's presenting symptoms and complaint, with consideration of any critical or life threatening conditions that may be associated with their obtained history and exam as noted above. Patient was treated with topical tetracaine to the left ear, Tylenol, and given a dose of azithromycin The patient was re-evaluated and was stable Evaluation was most consistent with acute otitis media of the left ear, patient given a prescription for azithromycin for 4 additional days, she is allergic to penicillins. Plan of care was discussed with the patient at this point, after careful consideration I feel that that patient can be discharged from the emergency department, the patient was educated treatments and reasons to return to the emergency department based on their presumed diagnosis as noted above, they were advised to followup with a primary care physician in 2-3 days. Patient was agreeable to plan of care. *Note is created using voice recognition software and may contain spelling, syntax or grammatical errors. - Vital Signs Vital signs: Temp Pulse Resp BP Pulse Ox 98.0 F 71 15 139/89 H 98 10/15/18 04:07 10/15/18 04:07 10/15/18 04:07 10/15/18 04:07 10/15/18 04:07 Discharge - Discharge Clinical Impression: Acute otitis media Qualifiers: Otitis media type: suppurative Laterality: left Recurrence: not specified as recurrent Spontaneous tympanic membrane rupture: without spontaneous rupture Qualified Code(s): H66.002 - Acute suppurative otitis media without spontaneous rupture of ear drum, left ear Condition: Stable Disposition: HOME, SELF-CARE Instructions: Otitis Media ([facility]) Prescriptions: RX: Azithromycin 500 mg PO DAILY #4 tablet Fluticasone Propionate [Flonase Nasal [place] 50 Mcg/[place] 16 gm] 1 spray NASL Q12 #1 inhaler Referrals: NICK NEWSOME NP [Primary Care Provider] - Follow up in 3-5 days
[2018-10-15 04:10] VITALS: BP 139/89
== END 2018-10-15 04:10 | disposition home or self-care (01) ==
LOC: ER 02:56
DX: H66.002 Acute suppurative otitis media without spontaneous rupture of ear drum, left ear (principal); H92.02 Otalgia, left ear; Z88.0 Allergy status to penicillin; Z88.2 Allergy status to sulfonamides; Z88.6 Allergy status to analgesic agent
CPT/HCPCS: 99282; J3490

== ENCOUNTER 2020-03-12 18:10 | Emergency (ER) | payer BC, MEDICAID ==
--- NOTE | 2020-03-12 20:06 | ER Document Report ---
ED Medical Screen (RME) - General Chief Complaint: Leg Pain Stated Complaint: LEG PAIN Time Seen by Provider: 03/12/20 20:00 Primary Care Provider: NICK NEWSOME NP [Primary Care Provider] - Follow up as needed Mode of Arrival: Ambulatory Information source: Patient Notes: 44-year-old female presents to ED for complaint of pain to the posterior right leg since morning. She states she does not have a history of DVTs have not done anything that could make that pain but she has no other causes for the pain from her posterior leg all the way up to her buttocks. She states she also started her menstrual cycle 2 days ago but she is only soaked 1 pad each day but she should be having full menstrual cycle but now. She states usually when she has her menstrual cycle she has a lot of clots because she has fibroids. She states she is having some pelvic cramping but that is because she is having her cycle. I have greeted and performed a rapid initial assessment of this patient. A comprehensive ED assessment and evaluation of the patient, analysis of test results and completion of medical decision making process will be conducted by an additional ED providers. TRAVEL OUTSIDE OF THE [place] IN LAST 30 DAYS: No - Related Data Allergies/Adverse Reactions: penicillin V potassium [From Pen-Vee K] Allergy (Intermediate, Verified 10/06/18 08:06) Hives Sulfa (Sulfonamide Antibiotics) Allergy (Intermediate, Verified 10/06/18 08:06) Hives ibuprofen [From Motrin] Allergy (Mild, Verified 10/06/18 08:06) Hives metronidazole [From Flagyl] Allergy (Mild, Verified 10/06/18 08:06) rash Metronidazole HCl [From Flagyl] Allergy (Mild, Verified 10/06/18 08:06) rash Penicillins Allergy (Verified 10/06/18 08:06) Past Medical History - Social History Family history: Reviewed & Not Pertinent Endocrine Medical History: Renal/ Medical History: Reports: Hx Ovarian Cysts. Denies: Hx Peritoneal Dialysis GI Medical History: Reports: Hx Gastroesophageal Reflux Disease Musculoskeltal Medical History: Reports Hx Arthritis, Reports Hx Musculoskeletal Deformity - scoliosis Psychiatric Medical History: Reports: Hx Anxiety, Hx Depression - anxiety - Immunizations Immunizations up to date: Yes Hx Diphtheria, Pertussis, Tetanus Vaccination: Yes - 2010 Physical Exam - Vital signs Vitals: Temp Pulse Resp BP Pulse Ox 98.4 F 74 18 129/84 H 100 03/12/20 18:16 03/12/20 18:16 03/12/20 18:16 03/12/20 18:16 03/12/20 18:16 Course - Vital Signs Vital signs: Temp Pulse Resp BP Pulse Ox 98.4 F 74 18 129/84 H 100 03/12/20 18:16 03/12/20 18:16 03/12/20 18:16 03/12/20 18:16 03/12/20 18:16 Doctor's Discharge - Discharge Referrals: NICK NEWSOME, [employer] [Primary Care Provider] - Follow up as needed
[2020-03-12 20:38] LABS: ABSOLUTE EOSINOPHILS # (AUTO) 0.1 10^3/uL (0.0-0.6); ABSOLUTE LYMPHOCYTES (AUTO) 1.6 10^3/uL (0.5-4.7); ABSOLUTE MONOCYTES (AUTO) 0.6 10^3/uL (0.1-1.4); ABSOLUTE NEUT (AUTO) 7.6 10^3/uL (1.7-8.2); BASOPHILS % (AUTO) 0.1 % (0-2); EOSINOPHILS % (AUTO) 0.6 % (0-6); HEMOGLOBIN 13.7 g/dL (12.0-15.5); LYMPHOCYTES % (AUTO) 16.6 % (13-45); MEAN CORPUSCULAR HEMOGLOBIN 30.1 pg (27.0-33.4); MEAN CORPUSCULAR HGB CONC 34.3 g/dL (32.0-36.0); MEAN CORPUSCULAR VOLUME 88 fl (80-97); MONOCYTES % (AUTO) 5.6 % (3-13); PLATELET COUNT 285 10^3/uL (150-450); RED BLOOD COUNT 4.56 10^6/uL (3.72-5.28); RED CELL DISTRIBUTION WIDTH 13.2 % (11.5-14.0); SEGMENTED NEUTROPHILS % (AUTO) 77.1 % (42-78); TOTAL CELLS COUNTED % (AUTO) 100 %; WHITE BLOOD COUNT 9.8 10^3/uL (4.0-10.5)
[2020-03-12 20:45] LABS: APPEARANCE,URINE SLIGHTLY-CLOUDY; BILIRUBIN,URINE NEGATIVE (NEGATIVE); COLOR,URINE YELLOW; GLUCOSE, URINE NEGATIVE (NEGATIVE); KETONES,URINE NEGATIVE (NEGATIVE); LEUKOCYTE ESTERASE,URINE NEGATIVE (NEGATIVE); NITRITE,URINE NEGATIVE (NEGATIVE); PROTEIN,URINE 30 mg/dL (NEGATIVE); URINE SPECIFIC GRAVITY 1.006; UROBILINOGEN,URINE NEGATIVE mg/dL (<2.0)
[2020-03-12 20:58] LABS: ALBUMIN 4.1 g/dL (3.5-5.0); ALKALINE PHOSPHATASE 45 U/L (38-126); ANION GAP 8 (5-19); ASPARTATE AMINO TRANSFERASE 22 U/L (14-36); BILIRUBIN,TOTAL 0.3 mg/dL (0.2-1.3); BLOOD UREA NITROGEN 11 mg/dL (7-20); CALCIUM 9.1 mg/dL (8.4-10.2); CARBON DIOXIDE 24 mmol/L (22-30); CHLORIDE 107 mmol/L (98-107); GLUCOSE 97 mg/dL (75-110); POTASSIUM 4.5 mmol/L (3.6-5.0); TOTAL PROTEIN 7.4 g/dL (6.3-8.2)
--- NOTE | 2020-03-12 21:51 | RADIOLOGY REPORT (SQ) ---
EXAM DESCRIPTION: US EXTREMITY VEINS UNILATERAL COMPLETED DATE/TME: 03/12/2020 20:03 CLINICAL HISTORY: 44 years, Female, Posterior right leg pain since morning COMPARISON: Prior study from 01/23/2018. TECHNIQUE: Axial 2-D grayscale images of the right lower extremity was acquired. LIMITATIONS: None. FINDINGS: Right common femoral, femoral, popliteal, posterior tibial, peroneal, greater saphenous, and small saphenous veins demonstrate normal compressibility and phasicity. No suspicious abnormalities are identified about the superficial soft tissues. IMPRESSION: No evidence of deep or superficial venous thrombosis about the right lower extremity. copyright 2010 [employer]- All Rights Reserved
[2020-03-12] MEDS ORDERED: PREDNISONE 20 MG TABLET PO ONE (22:32)
--- NOTE | 2020-03-12 22:32 | ER Document Report ---
ED Extremity Problem, Lower - General Chief Complaint: Leg Pain Stated Complaint: LEG PAIN Time Seen by Provider: 03/12/20 20:00 Primary Care Provider: NICK NEWSOME NP [Primary Care Provider] - Follow up as needed Mode of Arrival: Ambulatory Notes: CHIEF COMPLAINT: Right leg pain HPI: 44-year-old female presenting with right leg pain radiating from the low back through the gluteal region down the lateral leg to the level of the foot today. Has had intermittent episodes like this previously. States occasionally she will get some numbness and tingling in the same distribution. No i ncontinence of urine or bowel. No abdominal or pelvic pain. No dysuria. Has taken no medications for her symptoms. ROS: See HPI - all other systems were reviewed and are otherwise negative Constitutional: no fever Eyes: no drainage, no blurred vision ENT: no runny nose, no sore throat Cardiovascular: no chest pain Resp: no SOB, no cough GI: no vomiting, no diarrhea, no abdominal pain : no dysuria Integumentary: no rash Allergy: no hives Musculoskeletal: + extremity pain or swelling Neurological: + numbness/tingling, no weakness MEDICATIONS: I agree with the patient medications as charted by the RN. ALLERGIES: I agree with the allergies as charted by the RN. PAST MEDICAL HISTORY/PAST SURGICAL HISTORY: Reviewed and agree as charted by RN. SOCIAL HISTORY: Reviewed and agree as charted by RN. FAMILY HISTORY: No significant familial comorbid conditions directly related to patient complaint EXAM: Reviewed vital signs as charted by RN. CONSTITUTIONAL: Alert and oriented and responds appropriately to questions. Well-appearing; well-nourished HEAD: Normocephalic; atraumatic EYES: Conjunctivae clear, sclerae non-icteric ENT: normal nose; no rhinorrhea; moist mucous membranes NECK: Supple without meningismus; non-tender; no cervical lymphadenopathy, no masses CARD: Capillary refill less than 3 seconds; symmetric distal pulses RESP: Normal chest excursion without splinting or tachypnea ABD/GI: Normal bowel sounds; non-distended; soft, non-tender, no rebound, no guarding; no palpable organomegaly or masses. BACK: The back appears normal and is mildly tender to palpation through the right lower lateral lumbar back into the upper aspect of the right gluteus, there is no CVA tenderness EXT: Normal ROM in all joints; non-tender to palpation; no cyanosis, no effusions, no edema SKIN: Normal color for age and race; warm; dry; good turgor; no acute lesions noted NEURO: Moves all extremities equally; Motor and sensory function intact. Strength equal 5/5 bilateral lower extremities. Sensation intact and equal bilateral lower extremities. Straight leg raise is negative. No saddle anesthesia on exam. DTRs 2+ intact and equal bilateral lower extremities. PSYCH: The patient's mood and manner are appropriate. Grooming and personal hygiene are appropriate. MDM: 44-year-old female presenting with sciatic symptoms. Work-up initiated through triage process including lab work and Doppler study which were all essentially negative. Will place patient on steroids, refer to orthopedics for further management TRAVEL OUTSIDE OF THE [place] IN LAST 30 DAYS: No - Related Data Allergies/Adverse Reactions: penicillin V potassium [From Pen-Vee K] Allergy (Intermediate, Verified 10/06/18 08:06) Hives Sulfa (Sulfonamide Antibiotics) Allergy (Intermediate, Verified 10/06/18 08:06) Hives ibuprofen [From Motrin] Allergy (Mild, Verified 10/06/18 08:06) Hives metronidazole [From Flagyl] Allergy (Mild, Verified 10/06/18 08:06) rash Metronidazole HCl [From Flagyl] Allergy (Mild, Verified 10/06/18 08:06) rash Penicillins Allergy (Verified 10/06/18 08:06) Past Medical History - General Information source: Patient - Social History Smoking Status: Never Smoker Frequency of alcohol use: None Drug Abuse: None Family History: Arthritis, CAD, CVA, DM, Hyperlipidemia, Hypertension, Thyroid Disfunction Endocrine Medical History: Renal/ Medical History: Reports: Hx Ovarian Cysts. Denies: Hx Peritoneal Dialysis GI Medical History: Reports: Hx Gastroesophageal Reflux Disease Musculoskeletal Medical History: Reports Hx Arthritis, Reports Hx Musculoskeletal Deformity - scoliosis Psychiatric Medical History: Reports: Hx Anxiety, Hx Depression - anxiety - Immunizations Immunizations up to date: Yes Hx Diphtheria, Pertussis, Tetanus Vaccination: Yes - 2010 Physical Exam - Vital signs Vitals: Temp Pulse Resp BP Pulse Ox 98.4 F 74 18 129/84 H 100 03/12/20 18:16 03/12/20 18:16 03/12/20 18:16 03/12/20 18:16 03/12/20 18:16 Course - Vital Signs Vital signs: Temp Pulse Resp BP Pulse Ox 98.4 F 74 18 129/84 H 100 03/12/20 18:16 03/12/20 18:16 03/12/20 18:16 03/12/20 18:16 03/12/20 18:16 - Laboratory Result Diagrams: 03/12/20 20:23 03/12/20 20:23 Laboratory results interpreted by me: 03/12/20 20:23 Urine Protein 30 H Urine Blood LARGE H Discharge - Discharge Clinical Impression: Sciatica Qualifiers: Laterality: right Qualified Code(s): M54.31 - Sciatica, right side Condition: Stable Disposition: HOME, SELF-CARE Instructions: Sciatica ([facility]) Additional Instructions: Take the steroids as prescribed. Tramadol for severe pain. Follow-up with Dr. Sharma orthopedics for further evaluation and treatment call for appointment. Prescriptions: Tramadol HCl [Ultram 50 mg Tablet] 50 mg PO Q6HP PRN #12 tab PRN Reason: Prednisone [Deltasone 20 mg Tablet] 2 tab PO DAILY 5 Days #10 tablet Referrals: NICK NEWSOME, RYANNE [Primary Care Provider] - Follow up as needed HAROLDO MOORE DO [ACTIVE STAFF] - Follow up as needed
[2020-03-12 22:48] VITALS: BP 125/82
== END 2020-03-12 22:49 | disposition home or self-care (01) ==
LOC: ER 18:10
DX: M54.31 Sciatica, right side (principal); M79.604 Pain in right leg; M54.5 Low back pain; R20.0 Anesthesia of skin
CPT/HCPCS: 99284; 36415; 84703; 85025; 80053; 81001; 93971; J7512